=== PATIENT | female | born 1930 | race African-American/Black ===

== ENCOUNTER 2016-07-04 08:41 | Day surgery (SDC) | payer OTHER ==
[2016-07-03 12:31] VITALS: BMI 24.0
[~2016-07-04 08:41] MED LIST: IOHEXOL 300 MG/ML INFUS..BTL IV ONE
[2016-07-04] MEDS ORDERED: LIDOCAINE HCL 1%, 10 MG/ML (50 mL VIAL) IJ ONE (10:29)
[2016-07-04] MEDS ORDERED: MIDAZOLAM HCL 2 MG/2 ML SINGLE DOSE VIAL ONE ×2 (10:43)
[2016-07-04] MEDS ORDERED: ceFAZolin SODIUM 1 GM VIAL ONE (10:52)
[2016-07-04] MEDS ORDERED: ceFAZolin SODIUM 1 GM VIAL IVPB ONE (10:55)
[2016-07-04] MEDS ORDERED: HEPARIN NA (PORCINE) 5,000 UNITS/ML 1ML VIAL ONE (11:07)
--- NOTE | 2016-07-04 11:47 | OP ---
Operative Note - Note: Operative Date: 07/04/16 Pre-Operative Diagnosis: right avg stenosis Operation: venogram, venoplasty of central veins right avg Post-Operative Diagnosis: Same as Pre-op Surgeon: Rambo Ma Anesthesiologist/AIR DISPATCHER: Delmi Mayers Anesthesia: Fractional Estimated Blood Loss (mls): 5
--- NOTE | 2016-07-04 11:49 | HP ---
Admitting History and Physical - Admission Chief Complaint: Right arm swelling - Past Medical History Cardiovascular: Yes: HTN Gastrointestinal: Yes: Constipation Renal/: Yes: Renal Failure, Hemodialysis Heme/Onc: Yes: Anemia ENT: Yes: Allergic Rhinitis - Past Surgical History Past Surgical History: Yes: AV Fistula/Graft - Smoking History Smoking history: Former smoker Have you smoked in the past 12 months: No Aproximately how many cigarettes per day: 0 If you are a former smoker, when did you quit?: 40 YRS - Alcohol/Substance Use Hx Alcohol Use: No - Social History ADL: Independent History of Recent Travel: No Home Medications - Allergies Allergies/Adverse Reactions: Allergies Allergy/AdvReac Type Severity Reaction Status Date / Time No Known Drug Allergies Allergy Verified 07/03/16 12:31 - Home Medications Home Medications: Ambulatory Orders Furosemide [Lasix -] 80 mg PO DAILY 03/03/15 Nifedipine [Nifedipine ER] 30 mg PO DAILY 06/02/15 Omeprazole [Prilosec] 20 mg PO DAILY 06/02/15 Apixaban [Eliquis] 2.5 mg PO BID 30 Days 06/22/15 Sodium Bicarbonate 650 mg PO TID 08/04/15 Alprazolam [Xanax] 0.5 mg PO DAILY PRN 04/25/16 Physical Examination Vital Signs: Vital Signs Temperature 97.4 F L 07/04/16 09:07 Pulse Rate 80 07/04/16 09:07 Respiratory Rate 20 07/04/16 09:07 Blood Pressure 133/59 07/04/16 09:07 O2 Sat by Pulse Oximetry (%) 100 07/04/16 09:07 Constitutional: Yes: Well Nourished Eyes: Yes: WNL HENT: Yes: WNL Neck: Yes: WNL Cardiovascular: Yes: WNL Respiratory: Yes: WNL Gastrointestinal: Yes: WNL Labs: CBC, BMP 07/04/16 08:50 Assessment/Plan Right arm swelling 1. Will do venogram for central vein stenosis.
[2016-07-04] MEDS ORDERED: ONDANSETRON 4 MG/2 ML VIAL IVPUSH PRN (11:51)
[2016-07-04 12:33] VITALS: TEMP 98.3
[2016-07-04 13:59] VITALS: BP 127/55; PULSE 73
--- NOTE | 2016-07-29 21:12 | OP ---
DATE OF OPERATION: 07/04/2016 PREOPERATIVE DIAGNOSIS: Right arteriovenous graft stenosis. POSTOPERATIVE DIAGNOSIS: Right arteriovenous graft stenosis. PROCEDURE: Venogram, venoplasty of central veins, right arteriovenous graft. SURGEON: Rambo Chaney D.O. ANESTHESIOLOGIST: Delmi Mayers D.O. ANESTHESIA: Fractional. BLOOD LOSS: 5 mL. INDICATION: The patient is an 85-year-old female that has right upper extremity swelling along with swelling along her breasts. It was strongly suspected that she had central vein stenosis, and it was thought that she would need a venogram. Patient came into ambulatory surgery. Patient was consented for the procedure, understanding all risks, benefits, and alternatives and taken to the operating room. DESCRIPTION OF PROCEDURE: Once in the operating room, she was laid on the operating table in a supine manner, and the area of the right arm are prepped and draped in a sterile surgical manner. We then injected 2 mL of lidocaine 1% approximately at the proximal AV graft. We then placed our Micropuncture needle into the graft. A Micropuncture wire was inserted, and a short 6-Bulgarian sheath was inserted. We then shot a venogram of the right AV graft showing that the graft was patent but in the central veins at the junction between the subclavian vein and the SVC there was a 98% stenosis. At this point placed a 0.035 floppy guidewire followed by a Aurora catheter in order to selectively navigate across our stenosis. We then went ahead and upsized our sheath to a 7 Bulgarian sheath. 3000 units of IV heparin were administered to the patient. We then went ahead and used an 11 x 4 balloon and we performed venoplasty of the area. Completion of venogram showed that there was now greater flow in the area, but the vein was recoiling. We did not to place a stent at this time due to the fact that the data showed that placing a stent in the area probably will not stay open very long, and once that stent closes, the whole graft could go down and thrombose. So at this point we performed a venoplasty. There was increased flow, and we will now see if the swelling in the right upper extremity gets better. At this point, a fprfuh-[id number] suture was placed around the 7 Bulgarian sheath and the sheath was pulled, and the suture was tied down. Area was then dried. Dermabond was placed. Patient tolerated the procedure without complications. Patient was transferred to PACU in stable condition. Total blood loss 5 mL. RAMBO CHANEY DO [id number]
== END 2016-07-04 14:30 | disposition home or self-care (01) ==
LOC: JASU-SURG 08:41
PROVIDERS: ATTEND Surgery Vascular Surgery
PROC: 05753ZZ Dilation of Right Subclavian Vein, Percutaneous Approach (ICD-10-PCS; principal; 2016-07-04 10:30)
DX: T82.858A Stenosis of other vascular prosthetic devices, implants and grafts, initial encounter (principal); M79.89 Other specified soft tissue disorders; I12.0 Hypertensive chronic kidney disease with stage 5 chronic kidney disease or end stage renal disease; N18.5 Chronic kidney disease, stage 5; Z99.2 Dependence on renal dialysis
CPT/HCPCS: 36415; 76000-TC; 84132; 94760; J1644

== ENCOUNTER 2016-08-17 06:56 | Emergency (ER) | payer OTHER, BC ==
[2016-08-17 07:18] VITALS: TEMP 97.5; BMI 21.7
--- NOTE | 2016-08-17 07:49 | PDOC ---
[id number] Timing/Duration: reports: yesterday Associated Symptoms: reports: chest pain/soreness, cough, muscle aches, nasal congestion. denies: earache, facial pain, fever/chills, headache, lightheadedness, nasal drainage, shortness of breath, sore throat <Zari Garcia - Last Filed: 08/17/16 09:35> <Tiffany Cunningham - Last Filed: 08/17/16 11:42> - General Chief Complaint: Shortness of Breath Stated Complaint: COUGHING Time Seen by Provider: 08/17/16 07:19 Past History - Past Medical History Anemia: No Asthma: No Cancer: No Cardiac Disorders: No CVA: No COPD: No CHF: No Dementia: No Diabetes: No Dialysis: Yes (,,sat,old lt arm fistula,rt arm graft) GI Disorders: Yes (REFLUX) Disorders: No HTN: Yes Hypercholesterolemia: No Liver Disease: No Seizures: No Thyroid Disease: No - Surgical History Abdominal Surgery: No Appendectomy: No Cardiac Surgery: No Cholecystectomy: No Lung Surgery: No Neurologic Surgery: No Orthopedic Surgery: No - Immunization History Immunization Up to Date: Yes - Psycho/Social/Smoking Cessation Hx Anxiety: No Suicidal Ideation: No Smoking Status: No Smoking History: Former smoker Have you smoked in the past 12 months: No Number of Cigarettes Smoked Daily: 0 If you are a former smoker, when did you quit?: 40 YRS Information on smoking cessation initiated: No Hx Alcohol Use: No Drug/Substance Use Hx: No Substance Use Type: None Hx Substance Use Treatment: No <Zari Garcia - Last Filed: 08/17/16 09:35> <Tiffany Cunningham - Last Filed: 08/17/16 11:42> - Past Medical History Allergies/Adverse Reactions: Allergies Allergy/AdvReac Type Severity Reaction Status Date / Time No Known Drug Allergies Allergy Verified 08/17/16 07:08 Home Medications: Ambulatory Orders Furosemide [Lasix -] 80 mg PO DAILY 03/03/15 Nifedipine [Nifedipine ER] 30 mg PO DAILY 06/02/15 Omeprazole [Prilosec] 20 mg PO DAILY 06/02/15 Apixaban [Eliquis] 2.5 mg PO BID 30 Days 06/22/15 Sodium Bicarbonate 650 mg PO TID 08/04/15 Alprazolam [Xanax] 0.5 mg PO DAILY PRN 04/25/16 Review of Systems - Review of Systems Constitutional: No: Chills, Fever HEENTM: Yes: Nose Congestion. No: Ear Pain, Throat Pain Respiratory: Yes: Cough. No: Shortness of Breath Cardiac (ROS): Yes: Chest Pain ABD/GI: No: Diarrhea, Nausea, Vomiting <Zari Garcia - Last Filed: 08/17/16 09:35> *Physical Exam - Vital Signs Last Vital Signs Temp Pulse Resp BP Pulse Ox 97.5 F L 88 18 160/60 99 08/17/16 07:08 08/17/16 07:08 08/17/16 07:08 08/17/16 07:08 08/17/16 07:08 - Physical Exam General Appearance: Yes: Appropriately Dressed. No: Apparent Distress HEENT: positive: Normal ENT Inspection, Normal Voice. negative: Scleral Icterus (R), Scleral Icterus (L), Muffled/Hoarse voice Neck: positive: Supple. negative: Lymphadenopathy (R), Lymphadenopathy (L) Respiratory/Chest: positive: Lungs Clear, Normal Breath Sounds. negative: Respiratory Distress Cardiovascular: positive: Regular Rate, S1, S2 Gastrointestinal/Abdominal: positive: Soft. negative: Tender Integumentary: positive: Dry, Warm Neurologic: positive: Fully Oriented, Alert, Normal Mood/Affect <Zari Garcia - Last Filed: 08/17/16 09:35> - Vital Signs Last Vital Signs Temp Pulse Resp BP Pulse Ox 97.5 F L 77 17 141/58 100 08/17/16 07:08 08/17/16 09:59 08/17/16 09:59 08/17/16 09:59 08/17/16 09:59 <Tiffany Cunningham - Last Filed: 08/17/16 11:42> ED Treatment Course - LABORATORY CBC & Chemistry Diagram: 08/17/16 08:18 08/17/16 08:18 - RADIOLOGY Radiology Studies Ordered: Category Date Time Status CHEST X-RAY PORTABLE* [RAD] Stat Radiology 08/17/16 07:45 Ordered <Zari Garcia - Last Filed: 08/17/16 09:35> - LABORATORY CBC & Chemistry Diagram: 08/17/16 08:18 08/17/16 08:18 - ADDITIONAL ORDERS Additional order review: Laboratory Results 08/17/16 08:18 Sodium 137 Potassium 3.9 Chloride 101 Carbon Dioxide 27 Anion Gap 9 BUN 22 H D Creatinine 3.0 H D Creat Clearance w eGFR 14.80 Random Glucose 84 Calcium 8.3 L Total Bilirubin 0.3 AST 8 L ALT 9 L Alkaline Phosphatase 177 H Creatine Kinase 41 Troponin I < 0.02 Total Protein 6.9 Albumin 3.4 08/17/16 07:55 Influenza Types A,B Antigen (ROSY) - Final Nasopharyngeal Swab - Final 08/17/16 08:18 RBC 3.90 MCV 82.1 MCHC 33.0 RDW 15.3 MPV 7.3 L Neutrophils % 63.6 Lymphocytes % 25.1 Monocytes % 9.0 Eosinophils % 0.6 D Basophils % 1.7 - Medications Given in the ED: ED Medications Discontinued Medications Generic Name Dose Route Start Last Admin Trade Name Freq PRN Reason Stop Dose Admin Acetaminophen 650 mg 08/17/16 09:24 08/17/16 09:35 Tylenol - PO 08/17/16 09:25 650 mg ONCE ONE Administration <Tiffany Cunningham - Last Filed: 08/17/16 11:42> Medical Decision Making - Medical Decision Making 08/17/16 07:45 85-year-old female history of hypertension, 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 Denies shortness of breath, diaphoresis, dizziness, diarrhea, n/v/f/c. No sick contacts. See exam Viral syndrome Well thomas and stable w/ unremarkable exam Will r/o influenza and PNA -EKG and basic labs given CP -anticipate discharge home 08/17/16 07:49 08/17/16 09:25 EKG/CXR/labs/flu neg. Pt stable for discharge at this time to f/u with PMD as needed 08/17/16 09:35 <Zari Garcia - Last Filed: 08/17/16 09:35> *DC/Admit/Observation/Transfer <Zari Garcia - Last Filed: 08/17/16 09:35> - Attestations Physician Attestion: I reviewed the case with the mid-level practitioner and agree with the mid- level practitioner's assessment, diagnosis and disposition. <Tiffany Cunningham - Last Filed: 08/17/16 11:42> Diagnosis at time of Disposition: Viral syndrome - Discharge Dispostion Disposition: HOME Condition at time of disposition: Improved - Referrals Referrals: Rock Streeter [Primary Care Provider] - - Patient Instructions Printed Discharge Instructions: DI for Viral Syndrome Additional Instructions: Rest, maintain adequate hydration and take tylenol as needed for body aches
[2016-08-17 08:33] LABS: BASOPHIL 1.7 % (0-2.0); EOSINOPHIL 0.6 % (0-4.5); MCH 27.1 pg (25.7-33.7); MEAN CELL VOLUME 82.1 fl (80-96); MEAN PLT VOLUME 7.3 fl (7.5-11.1); NEUTROPHILS 63.6 % (42.8-82.8); PLATELET COUNT 156 K/MM3 (134-434); RDW 15.3 % (11.6-15.6); WHITE BLOOD COUNT 5.1 K/mm3 (4.0-10.0)
[2016-08-17 08:57] LABS: ALBUMIN 3.4 g/dl (3.4-5.0); ANION GAP 9 (8-16); BILIRUBIN,TOTAL 0.3 mg/dL (0.2-1.0); CALCIUM 8.3 mg/dL (8.5-10.1); CO2 27 mmol/L (21-32); GLUCOSE,RANDOM 84 mg/dL (74-106); SGOT/AST 8 U/L (15-37); SGPT/ALT 9 U/L (12-78); TOT PROT 6.9 g/dl (6.4-8.2)
[2016-08-17 08:59] LABS: ALK PHOS 177 U/L (45-117); TROPONIN I < 0.02 ng/ml (0.00-0.05)
[2016-08-17] MEDS ORDERED: ACETAMINOPHEN 325 MG TABLET (FP) PO ONE (09:24)
[2016-08-17] MEDS ORDERED: ACETAMINOPHEN 325 MG TABLET (FP) ONE (09:46)
--- NOTE | 2016-08-17 09:55 | PDOC ---
*Physical Exam - Vital Signs Last Vital Signs Temp Pulse Resp BP Pulse Ox 97.5 F L 88 18 160/60 99 08/17/16 07:08 08/17/16 07:08 08/17/16 07:08 08/17/16 07:08 08/17/16 07:15 ED Treatment Course - LABORATORY CBC & Chemistry Diagram: 08/17/16 08:18 08/17/16 08:18 - ADDITIONAL ORDERS Additional order review: Laboratory Results 08/17/16 08:18 Sodium 137 Potassium 3.9 Chloride 101 Carbon Dioxide 27 Anion Gap 9 BUN 22 H D Creatinine 3.0 H D Creat Clearance w eGFR 14.80 Random Glucose 84 Calcium 8.3 L Total Bilirubin 0.3 AST 8 L ALT 9 L Alkaline Phosphatase 177 H Creatine Kinase 41 Troponin I < 0.02 Total Protein 6.9 Albumin 3.4 08/17/16 07:55 Influenza Types A,B Antigen (ROSY) - Final Nasopharyngeal Swab - Final 08/17/16 08:18 RBC 3.90 MCV 82.1 MCHC 33.0 RDW 15.3 MPV 7.3 L Neutrophils % 63.6 Lymphocytes % 25.1 Monocytes % 9.0 Eosinophils % 0.6 D Basophils % 1.7 - RADIOLOGY Radiology Studies Ordered: Category Date Time Status CHEST X-RAY PORTABLE* [RAD] Stat Radiology 08/17/16 07:45 Completed Medical Decision Making - Medical Decision Making 08/17/16 09:55 Upon discharge pt now reports dizziness that she said started last night. Denies vertigo, VALIENTE, visual changes, focal weakness and neurologically intact in ED. EKG/labs unremarkable. Pt unsteady on feet as per nurse, otherwise neuro intact on exam. Will observe in ED and reassess 08/17/16 09:57 08/17/16 10:46 On reassessment, patient reports feeling much better and was able to ambulate throughout ED with her walker without further dizziness. Stable at this time for discharge to follow-up with PMD *DC/Admit/Observation/Transfer Diagnosis at time of Disposition: Viral syndrome - Discharge Dispostion Disposition: HOME Condition at time of disposition: Improved - Referrals Referrals: Rock Streeter [Primary Care Provider] - - Patient Instructions Printed Discharge Instructions: DI for Viral Syndrome Additional Instructions: Rest, maintain adequate hydration and take tylenol as needed for body aches - Post Discharge Activity
[2016-08-17 10:01] VITALS: BP 141/58; PULSE 77
--- NOTE | 2016-08-17 15:17 | EKG ---
Test Reason : Blood Pressure : / mmHG Vent. Rate : 072 BPM Atrial Rate : 072 BPM P-R Int : 190 ms QRS Dur : 094 ms QT Int : 434 ms P-R-T Axes : 052 -05 053 degrees QTc Int : 475 ms NORMAL SINUS RHYTHM POOR R WAVE PROGRESSION ABNORMAL ECG WHEN COMPARED WITH ECG OF 25-APR-2016 12:30, NO SIGNIFICANT CHANGE WAS FOUND Confirmed by MAXINE VARELA MD ([id number]) on 08/17/2016 3:16:55 PM Referred By: Confirmed By:MAXINE VARELA MD
== END 2016-08-17 10:59 | disposition home or self-care (01) ==
LOC: JER 06:56
DX: B34.9 Viral infection, unspecified (principal); I12.0 Hypertensive chronic kidney disease with stage 5 chronic kidney disease or end stage renal disease; N18.6 End stage renal disease; N17.8 Other acute kidney failure; Z99.2 Dependence on renal dialysis; Z87.891 Personal history of nicotine dependence
CPT/HCPCS: 36415; 71010-TC; 80053; 82550; 84484; 85025; 87804; 93005; 93010; 99282-25

== ENCOUNTER 2016-09-05 08:22 | Day surgery (SDC) | payer OTHER ==
[2016-09-04 11:45] VITALS: BMI 22.6
[~2016-09-05 08:22] MED LIST changes: +HEPARIN NA (PORCINE) 5,000 UNITS/ML 1ML VIAL IV ONE; -IOHEXOL 300 MG/ML INFUS..BTL IV ONE; +LIDOCAINE HCL 1%, 10 MG/ML (20ML VIAL) IJ ONE
[2016-09-05] MEDS ORDERED: HEPARIN NA (PORCINE) 5,000 UNITS/ML 1ML VIAL ONE (09:51)
[2016-09-05] MEDS ORDERED: LIDOCAINE HCL 1%, 10 MG/ML (20ML VIAL) ONE (09:51)
[2016-09-05] MEDS ORDERED: KETOROLAC TROMETHAMINE 30 MG/1 ML VIAL ONE (11:08)
[2016-09-05] MEDS ORDERED: MIDAZOLAM HCL 2 MG/2 ML SINGLE DOSE VIAL ONE ×2 (11:08→11:13)
[2016-09-05] MEDS ORDERED: ceFAZolin SODIUM 1 GM VIAL ONE (11:08)
[2016-09-05] MEDS ORDERED: LIDOCAINE HCL 1%, 10 MG/ML (20ML VIAL) IJ ONE (11:21)
[2016-09-05] MEDS ORDERED: HEPARIN NA (PORCINE) 5,000 UNITS/ML 1ML VIAL IV ONE (11:25)
[2016-09-05] MEDS ORDERED: ONDANSETRON 4 MG/2 ML VIAL IVPUSH PRN (12:05)
[2016-09-05] MEDS ORDERED: PROMETHAZINE HCL 25 MG/1 ML VIAL IVPUSH PRN (12:05)
[2016-09-05] MEDS ORDERED: oxyCODONE HCL 5 MG TABLET PO PRN (12:05)
--- NOTE | 2016-09-05 12:11 | OP ---
Operative Note - Note: Operative Date: 09/05/16 Pre-Operative Diagnosis: Central vein stenosis right avg Operation: venogram right avg, venoplasty of central veins Findings: 100% occlusion of right sublclavian,SVC junction 12x4 conquest balloon used. Post-Operative Diagnosis: Same as Pre-op Surgeon: Rambo aM Anesthesia: Fractional Estimated Blood Loss (mls): 10 Operative Report Dictated: Yes
--- NOTE | 2016-09-05 12:12 | HP ---
Admitting History and Physical - Admission Chief Complaint: right upper ext swelling - Past Medical History Cardiovascular: Yes: HTN Gastrointestinal: Yes: Constipation Renal/: Yes: Renal Failure, Hemodialysis ...: No Heme/Onc: Yes: Anemia ENT: Yes: Allergic Rhinitis - Past Surgical History Past Surgical History: Yes: AV Fistula/Graft - Advance Directives Advance Directives: Yes: Living Will, Health Care Proxy - Smoking History Smoking history: Former smoker Have you smoked in the past 12 months: No Aproximately how many cigarettes per day: 0 If you are a former smoker, when did you quit?: 40 YRS - Alcohol/Substance Use Hx Alcohol Use: No - Social History ADL: Independent History of Recent Travel: No Home Medications - Allergies Allergies/Adverse Reactions: Allergies Allergy/AdvReac Type Severity Reaction Status Date / Time No Known Drug Allergies Allergy Verified 09/04/16 11:46 SEASONAL ALLERGIES Allergy Intermediate Uncoded 09/04/16 11:47 - Home Medications Home Medications: Ambulatory Orders Furosemide [Lasix -] 80 mg PO DAILY 03/03/15 Nifedipine [Nifedipine ER] 30 mg PO DAILY 06/02/15 Omeprazole [Prilosec] 20 mg PO DAILY 06/02/15 Apixaban [Eliquis] 2.5 mg PO BID 30 Days 06/22/15 Sodium Bicarbonate 650 mg PO TID 08/04/15 Alprazolam [Xanax] 0.5 mg PO DAILY PRN 04/25/16 Cinacalcet HCl [Sensipar] 30 mg PO DAILY 09/05/16 Physical Examination Vital Signs: Vital Signs Temperature 98.1 F 09/05/16 09:01 Pulse Rate 84 09/05/16 09:01 Respiratory Rate 20 09/05/16 09:01 Blood Pressure 144/62 09/05/16 09:01 O2 Sat by Pulse Oximetry (%) 99 09/05/16 09:01 Constitutional: Yes: Well Nourished Eyes: Yes: WNL HENT: Yes: WNL Neck: Yes: WNL Cardiovascular: Yes: WNL Respiratory: Yes: WNL Gastrointestinal: Yes: WNL Extremities: Yes: WNL Edema: RUE: 3+ Labs: CBC, BMP 09/05/16 08:30 Assessment/Plan Right central vein stenosis 1. For venogram today
[2016-09-05 13:55] VITALS: TEMP 98.2
[2016-09-05 14:13] VITALS: PULSE 70
[2016-09-05 15:31] VITALS: BP 143/66
--- NOTE | 2016-09-06 09:00 | OP ---
DATE OF OPERATION: 09/05/2016 PREOPERATIVE DIAGNOSES: Right upper extremity swelling. Central vein stenosis. POSTOPERATIVE DIAGNOSES: Right upper extremity swelling. Central vein stenosis. PROCEDURES: Venogram. Right arteriovenous graft. Venoplasty of central vein. SURGEON: Rambo Chaney DO ANESTHESIA: Fractional. TOTAL BLOOD LOSS: 10 mL. The patient is a 85-year-old female who has right upper extremity swelling along with breast swelling. Two and one-half months ago, she had a venoplasty of the central veins performed due to severe central vein stenosis. She now comes back with swelling in the right upper extremity and the breast again. It was found that she would need a repeat venogram. The patient was consented for the procedure, understanding all risks, benefits and alternatives, and taken to the operating room. Once in the operating suite, laid on the operating room table in a supine manner. The area of the right upper extremity was prepped and draped in a sterile surgical manner. We then went ahead and injected 10 mL over the proximal right AV graft. We then took our Micropuncture needle and punctured the right AV graft. The Micropuncture wire was inserted. The Micropuncture sheath was inserted. A 0.035 floppy guide wire was inserted and then the traditional 8-[place]aj[place] sheath was inserted. Three-thousand units of IV heparin were administered to the patient. We then placed our 0.035 floppy guide wire into the central veins. We shot a venogram showing the 100% occlusion at the junction of the subclavian vein and the SVC. At this point, we went ahead and placed a 65 catheter in and selectively cannulated across our occlusion and placed a wire outside the right atrium. We then went ahead and used a 10 x 8 [place] balloon and performed venoplasty of the area. Then, we used a 12 x 4 Conquest balloon and performed venoplasty. Completion venogram now showed that the flow was open and there was probably still recoil. However, the junction was now open and there was good flow into the SVC. On the way out, we used our 12 x 4 balloon and performed venoplasty of the venous anastomosis of the AV graft. Completion venogram showed that there was good flow and the venous anastomosis was patent now. We then went ahead and used a 4-0 Biosyn stitch and placed a [id number] stitch around the sheath and the sheath was pulled. The areas were then dried and Dermabond was placed. The patient tolerated the procedure well. There were no complications. The patient was transferred to the PACU in stable condition. RAMBO CHANEY DO [id number]
== END 2016-09-05 15:00 | disposition home or self-care (01) ==
LOC: JASU-SURG 08:22
PROVIDERS: ATTEND Surgery Vascular Surgery
PROC: 05753ZZ Dilation of Right Subclavian Vein, Percutaneous Approach (ICD-10-PCS; principal; 2016-09-05 10:30)
DX: T82.858A Stenosis of other vascular prosthetic devices, implants and grafts, initial encounter (principal); I12.0 Hypertensive chronic kidney disease with stage 5 chronic kidney disease or end stage renal disease; N18.6 End stage renal disease; Z99.2 Dependence on renal dialysis
CPT/HCPCS: 36415; 76000-TC; 84132; 94760; J1644

== ENCOUNTER 2016-11-28 09:16 | Day surgery (SDC) | payer OTHER ==
[2016-11-27 11:15] VITALS: BMI 21.9
[2016-11-28] MEDS ORDERED: ISOSULFAN BLUE 10 MG/ML VIAL SQ ONE (09:50)
[2016-11-28 10:35] LABS: CALCIUM 8.5 mg/dL (8.5-10.1); COCKROFT - GAULT 9.605; CREATININE 3.1 mg/dL (0.55-1.02)
[2016-11-28] MEDS ORDERED: LIDOCAINE HCL 1%, 10 MG/ML (20ML VIAL) ONE (11:37)
[2016-11-28] MEDS ORDERED: HEPARIN NA (PORCINE) 5,000 UNITS/ML 1ML VIAL ONE (11:37)
[2016-11-28] MEDS ORDERED: MIDAZOLAM HCL 2 MG/2 ML SINGLE DOSE VIAL ONE (11:44)
[2016-11-28] MEDS ORDERED: SODIUM CHLORIDE 0.9% P/F 10 ML VIAL IJ ONE (11:52)
[2016-11-28] MEDS ORDERED: ceFAZolin SODIUM 1 GM VIAL ONE (11:52)
[2016-11-28] MEDS ORDERED: ceFAZolin SODIUM 1 GM VIAL IVPB ONE (11:55)
[2016-11-28] MEDS ORDERED: LIDOCAINE HCL 1%, 10 MG/ML (20ML VIAL) IJ ONE (12:05)
[2016-11-28] MEDS ORDERED: ONDANSETRON 4 MG/2 ML VIAL IVPUSH PRN (13:01)
[2016-11-28] MEDS ORDERED: PROMETHAZINE HCL 25 MG/1 ML VIAL IVPUSH PRN (13:01)
[2016-11-28] MEDS ORDERED: SODIUM CHLORIDE 1,000 ML IV SCH (13:15)
--- NOTE | 2016-11-28 13:18 | OP ---
Operative Note - Note: Operative Date: 11/28/16 Pre-Operative Diagnosis: Central vein stenosis right avg Operation: Venogram, venoplasty, stent placement central veins avg Findings: Central vein stenosis 95% Post-Operative Diagnosis: Same as Pre-op Surgeon: Rambo Ma Anesthesia: Fractional Estimated Blood Loss (mls): 50 Operative Report Dictated: Yes
--- NOTE | 2016-11-28 13:20 | HP ---
Admitting History and Physical - Admission Chief Complaint: right arm and breast swelling - Past Medical History Cardiovascular: Yes: HTN Gastrointestinal: Yes: Constipation Renal/: Yes: Renal Failure, Hemodialysis Heme/Onc: Yes: Anemia ENT: Yes: Allergic Rhinitis - Past Surgical History Past Surgical History: Yes: AV Fistula/Graft - Smoking History Smoking history: Former smoker Have you smoked in the past 12 months: No Aproximately how many cigarettes per day: 0 If you are a former smoker, when did you quit?: 40 YRS - Alcohol/Substance Use Hx Alcohol Use: No - Social History ADL: Independent History of Recent Travel: No Home Medications - Allergies Allergies/Adverse Reactions: Allergies Allergy/AdvReac Type Severity Reaction Status Date / Time No Known Drug Allergies Allergy Verified 11/28/16 10:19 SEASONAL ALLERGIES Allergy Intermediate Uncoded 11/28/16 10:19 - Home Medications Home Medications: Ambulatory Orders Furosemide [Lasix -] 80 mg PO DAILY 03/03/15 Omeprazole [Prilosec] 20 mg PO DAILY 06/02/15 Apixaban [Eliquis] 2.5 mg PO BID 30 Days 06/22/15 Sodium Bicarbonate 650 mg PO TID 08/04/15 Cinacalcet HCl [Sensipar] 30 mg PO DAILY 09/05/16 Physical Examination Vital Signs: Vital Signs Temperature 98.1 F 11/28/16 10:24 Pulse Rate 76 11/28/16 10:24 Respiratory Rate 18 11/28/16 10:24 Blood Pressure 141/65 11/28/16 10:24 O2 Sat by Pulse Oximetry (%) Constitutional: Yes: Well Nourished Eyes: Yes: WNL HENT: Yes: WNL Neck: Yes: WNL Cardiovascular: Yes: WNL Respiratory: Yes: WNL Gastrointestinal: Yes: WNL Extremities: Yes: WNL Edema: Yes Edema: RUE: 2+ Labs: CBC, BMP 11/28/16 09:55 Assessment/Plan Right arm and breast swelling 1. For venogram today
[2016-11-28] MEDS ORDERED: ACETAMINOPHEN 325 MG TABLET (FP) ONE (14:49)
[2016-11-28] MEDS ORDERED: ACETAMINOPHEN 325 MG TABLET (FP) PO ONE (15:00)
[2016-11-28 15:47] VITALS: TEMP 98
[2016-11-28 15:49] VITALS: BP 145/64; PULSE 77
--- NOTE | 2016-11-28 23:31 | OP ---
DATE OF OPERATION: 11/28/2016 PREOPERATIVE DIAGNOSIS: Right arm and right breast swelling. POSTOPERATIVE DIAGNOSIS: Right arm and right breast swelling. OPERATION: Venogram, venoplasty with central vein stent placement. SURGEON: Rambo Chaney DO ANESTHESIA: Fractional. ESTIMATED BLOOD LOSS: 50 mL. INDICATIONS: The patient is an 86-year-old female with right arm and right breast swelling. It was decided that she needs a venogram. She has a known central vein stenosis but she needs a venogram and this time we had Plastic Surgery evaluate, if we gave some dye if it goes into her breast. The main symptoms of her breast is that the right breast is 2-3 times bigger than the left breast and we wanted to see if there was any connection between the central veins and the breast. The patient was consented for this procedure, understanding all risks, benefits, alternatives and then taken to the operating room. PROCEDURE IN DETAIL: Once in the operating room, she was placed on the operating table in a supine manner. The area of the right arm was prepped and draped in a sterile surgical manner. We then injected 10 mL of lidocaine 1% over the right AV graft. We then took our micropuncture needle and punctured the AV graft. Micropuncture wire was inserted and short 7-[place] sheath was inserted. We then shot a venogram through the graft and we found that there was a 95% stenosis in the central veins at the junction of the subclavian vein and the SVC. We then went ahead and took methylene blue dye and injected 5 mL of it and we waited to see if that projected to her skin over the right breast. It did not. At this point, that we decided that most of her symptoms are probably due to her central vein stenosis. We then placed a 0.035 guidewire down into the subclavian vein, followed by a Chucho catheter and we were able to selectively cannulate through that 95% stenosis and place a wire down into the IVC. We then went ahead and used a 10 x 4 [place] balloon and performed venoplasty of the area. Once venoplasty was performed, we tired to take the [place] balloon out, but the [place] balloon was stuck on our sheath and would not come out. The balloon and the shaft of the balloon . The shaft came out and the balloon was inside the sheath. We then went ahead and removed our sheath and placed another 7-[place] sheath in its place. The broken balloon was inside the original sheath and that was taken off the field. We then went ahead and placed a 0.035 floppy guidewire back up into the subclavian vein and selectively cannulated through the area we just ballooned and placed a wire into the IVC. We then used a 10 x 3 Valeo balloon-mounted stent and went ahead and placed our balloon mounted stent at the junction of the SVC and the subclavian vein. We then shot a completion venogram showing that now the outflow was completely open with the heart lighting up. At this point, we took a 4-0 Biosyn stitch and placed a [id number]-zq-yngdx stitch around our sheath and the 7-[place] sheath was removed. Pressure was held for five minutes. After there was no bleeding, the area was wet and dried and Dermabond was placed. The patient tolerated the procedure well with no complications. The patient was transferred to the PACU in stable condition. RAMBO CHANEY DO [id number]
== END 2016-11-28 13:35 | disposition home or self-care (01) ==
LOC: JASU-SURG 09:16
PROVIDERS: ATTEND Surgery Vascular Surgery
PROC: B518YZA Fluoroscopy of Superior Vena Cava using Other Contrast, Guidance (ICD-10-PCS; 2016-11-28)
PROC: 05753DZ Dilation of Right Subclavian Vein with Intraluminal Device, Percutaneous Approach (ICD-10-PCS; 2016-11-28)
PROC: B516YZA Fluoroscopy of Right Subclavian Vein using Other Contrast, Guidance (ICD-10-PCS; principal; 2016-11-28 11:00)
DX: T82.49XA Other complication of vascular dialysis catheter, initial encounter (principal); I12.0 Hypertensive chronic kidney disease with stage 5 chronic kidney disease or end stage renal disease; N18.6 End stage renal disease; Z99.2 Dependence on renal dialysis
CPT/HCPCS: 36415; 76000-TC; 80048; 94760; J1644

== ENCOUNTER 2016-12-10 12:57 | Inpatient (IN) | payer OTHER ==
--- NOTE | 2016-12-10 13:41 | PDOC ---
History of Present Illness - General History Source: Patient, Primary Care Provider Exam Limitations: No Limitations - History of Present Illness Initial Comments: 12/10/16 13:51 The patient is an 86-year-old woman, accompanied by her grand-daughter, with a past medical history of hypertension, gastroesophageal reflux disease and end- stage renal disease (on hemo-dialysis q. T/R/S) who was advised to present to the emergency department by her PMD, Dr. Rock Streeter for evaluation of an anal fissure. As per grand-daughter, patient's symptoms started approximately 2 weeks ago. The patient started to experience rectal pain and attempted to use suppositories, which did not help. She has also developed suprapubic abdominal pain and currently feels nauseous. She was seen at her PMD's office, who stated that the patient had an anal fissure. No blood per rectum. No other complaints. She denies fever, chills, diaphoresis, generalized weakness. She denies chest pain, shortness of breath, cough She denies vomiting, diarrhea, dysuria, hematuria, urinary frequency and urgency , flank pain, vaginal discharge/vaginal bleeding Allergies: No Known Drug Allergies. Seasonal Allergies. Past Surgical History: None reported. Social History: No tobacco, EtOH and recreational drug use. Primary Care Physician: Dr. Rock Streeter <Nila Garner - Last Filed: 12/10/16 14:37> <Dai Batres - Last Filed: 12/10/16 15:52> - General Chief Complaint: Rectal Bleed Stated Complaint: (PCP SENT) RECTAL PAIN Time Seen by Provider: 12/10/16 13:36 Past History <Nila Garner - Last Filed: 12/10/16 14:37> - Past Medical History Anemia: No Asthma: No Cancer: No Cardiac Disorders: Yes CVA: No COPD: No CHF: No Dementia: No Diabetes: No Dialysis: Yes (Sat) GI Disorders: Yes (GERD) Disorders: No HTN: Yes Hypercholesterolemia: No Liver Disease: No Seizures: No Thyroid Disease: No - Surgical History Abdominal Surgery: No Appendectomy: No Cardiac Surgery: No Cholecystectomy: No Lung Surgery: No Neurologic Surgery: No Orthopedic Surgery: No - Immunization History Immunization Up to Date: Yes - Psycho/Social/Smoking Cessation Hx Anxiety: No Suicidal Ideation: No Smoking Status: No Smoking History: Former smoker Have you smoked in the past 12 months: No Number of Cigarettes Smoked Daily: 0 If you are a former smoker, when did you quit?: 40 YRS Information on smoking cessation initiated: No Hx Alcohol Use: No Drug/Substance Use Hx: No Substance Use Type: None Hx Substance Use Treatment: No <Dai Batres - Last Filed: 12/10/16 15:52> - Past Medical History Allergies/Adverse Reactions: Allergies Allergy/AdvReac Type Severity Reaction Status Date / Time No Known Drug Allergies Allergy Verified 12/10/16 13:03 SEASONAL ALLERGIES Allergy Intermediate Uncoded 12/10/16 13:03 Home Medications: Ambulatory Orders Furosemide [Lasix -] 80 mg PO DAILY 03/03/15 Omeprazole [Prilosec] 20 mg PO DAILY 06/02/15 Apixaban [Eliquis] 2.5 mg PO BID 30 Days 06/22/15 Sodium Bicarbonate 650 mg PO TID 08/04/15 Cinacalcet HCl [Sensipar] 30 mg PO DAILY 09/05/16 Review of Systems - Review of Systems Able to Perform ROS?: Yes Comments:: 12/10/16 13:51 GENERAL/CONSTITUTIONAL: No fever or chills. No weakness. HEAD, EYES, EARS, NOSE AND THROAT: No change in vision. No ear pain or discharge. No sore throat. CARDIOVASCULAR: No chest pain or shortness of breath. RESPIRATORY: No cough, wheezing, or hemoptysis. GASTROINTESTINAL: Yes: Rectal pain. Abdominal Pain. Nausea. No vomiting, diarrhea or constipation. GENITOURINARY: No dysuria, frequency, or change in urination. MUSCULOSKELETAL: No joint or muscle swelling or pain. No neck or back pain. SKIN: No rash NEUROLOGIC: No headache, vertigo, loss of consciousness, or change in strength/ sensation. ENDOCRINE: No increased thirst. No abnormal weight change. HEMATOLOGIC/LYMPHATIC: No anemia, easy bleeding, or history of blood clots. ALLERGIC/IMMUNOLOGIC: No hives or skin allergy. <Nila Garner - Last Filed: 12/10/16 14:37> *Physical Exam - Vital Signs Last Vital Signs Temp Pulse Resp BP Pulse Ox 97.9 F 93 H 18 160/67 98 12/10/16 12:59 12/10/16 12:59 12/10/16 12:59 12/10/16 12:59 12/10/16 12:59 - Physical Exam Comments: 12/10/16 13:51 GENERAL: Awake, alert, and fully oriented, in no acute distress HEAD: No signs of trauma EYES: PERRLA, EOMI, sclera anicteric, conjunctiva clear ENT: Auricles normal inspection, hearing grossly normal, nares patent, oropharynx clear without exudates. Moist mucosa NECK: Normal ROM, supple, no lymphadenopathy, JVD, or masses LUNGS: Breath sounds equal, clear to auscultation bilaterally. No wheezes, and no crackles HEART: Regular rate and rhythm, normal S1 and S2, no murmurs, rubs or gallops ABDOMEN: Soft, nontender, normoactive bowel sounds. No guarding, no rebound. No masses EXTREMITIES: Normal range of motion, no edema. No clubbing or cyanosis. No cords, erythema, or tenderness NEUROLOGICAL: Cranial nerves II through XII grossly intact. Normal speech, RECTAL: Small external hemmorhoid. No tenderness. No masses. <Nila Garner - Last Filed: 12/10/16 14:37> - Vital Signs Last Vital Signs Temp Pulse Resp BP Pulse Ox 97.9 F 93 H 18 160/67 98 12/10/16 12:59 12/10/16 12:59 12/10/16 12:59 12/10/16 12:59 12/10/16 12:59 <Dai Batres - Last Filed: 12/10/16 15:52> ED Treatment Course - LABORATORY CBC & Chemistry Diagram: 12/10/16 14:16 12/10/16 14:16 <Nila Garner - Last Filed: 12/10/16 14:37> - LABORATORY CBC & Chemistry Diagram: 12/10/16 14:16 12/10/16 14:16 <Dai Batres - Last Filed: 12/10/16 15:52> Medical Decision Making - Medical Decision Making 12/10/16 13:[address] Rock Streeter. 12/10/16 14:[address] Trejo. 12/10/16 14:[address] Trejo. Patient has an outpatient appointment on . If blood work is WNL, patient can follow up as outpatient. 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 Patient has failed multiple trials of outpatient management of her constipation. Abdomen is non tender on my exam, rectal exam shows small hemorrhoid. Patient and PMD strongly desire admission. Dr. Lambert has agreed to admit the patient. Will admit to medicine for management of her constipation and pain. <Dai Batres - Last Filed: 12/10/16 15:52> *DC/Admit/Observation/Transfer - Attestations Scribe Attestion: 12/10/16 13:51 Documentation prepared by Nila Garner, acting as medical assistant internal medicine for Dai Batres MD, /DO. <Nila Garner - Last Filed: 12/10/16 14:37> - Discharge Dispostion Admit: Yes Decision to Admit order Date/Time: 12/10/16 15:52 <Dai Batres - Last Filed: 12/10/16 15:52> Diagnosis at time of Disposition: Anal fissure - Discharge Dispostion Condition at time of disposition: Good
[2016-12-10 14:43] LABS: BASOPHIL 1.2 % (0-2.0); EOSINOPHIL 0.8 % (0-4.5); MCHC 32.3 g/dl (32.0-36.0); MEAN CELL VOLUME 83.7 fl (80-96); MEAN PLT VOLUME 8.2 fl (7.5-11.1); PLATELET COUNT 181 K/MM3 (134-434); RDW 17.9 % (11.6-15.6); WHITE BLOOD COUNT 3.8 K/mm3 (4.0-10.0)
[2016-12-10 14:54] LABS: INR 1.8 (0.82-1.09)
[2016-12-10 14:56] LABS: ACTIVATED PTT 66.8 SECONDS (26.9-34.4)
[2016-12-10 15:02] LABS: ALBUMIN 3.6 g/dl (3.4-5.0); ALK PHOS 140 U/L (45-117); ANION GAP 10 (8-16); BILIRUBIN,TOTAL 0.5 mg/dL (0.2-1.0); CALCIUM 8.4 mg/dL (8.5-10.1); CO2 29 mmol/L (21-32); CREATININE 4.6 mg/dL (0.55-1.02); GLUCOSE,RANDOM 106 mg/dL (74-106); SGOT/AST 12 U/L (15-37); SGPT/ALT 16 U/L (12-78); TOT PROT 6.6 g/dl (6.4-8.2)
[2016-12-10] MEDS ORDERED: MAG HYDROX/AL HYDROX/SIMETH 30 ML UNIT-DOSE CUP PO ONE (16:36)
[2016-12-10] MEDS ORDERED: MAG HYDROX/AL HYDROX/SIMETH 30 ML UNIT-DOSE CUP ONE (16:54)
[2016-12-10 17:50] VITALS: BMI 28.0
[2016-12-10] MEDS ORDERED: PT OWN MED DRAWER 7, Y5N ONE (21:29)
[2016-12-10] MEDS: SODIUM BICARBONATE 650 MG TABLET PO SCH (21:37)
[2016-12-10] MEDS: APIXABAN 2.5 MG TABLET PO SCH (22:34)
[2016-12-10] MEDS ORDERED: FUROSEMIDE 40 MG/4 ML INJECTABLE VIAL IVPUSH ONE (23:15)
[2016-12-11] MEDS ORDERED: EPOETIN ALFA 10,000 UNIT/1 ML VIAL SQ ONE (09:00)
[2016-12-11 10:39] LABS: BASOPHIL 1.5 % (0-2.0); EOSINOPHIL 0.9 % (0-4.5); MCH 26.8 pg (25.7-33.7); MCHC 32.4 g/dl (32.0-36.0); MEAN CELL VOLUME 82.8 fl (80-96); MEAN PLT VOLUME 8.2 fl (7.5-11.1); NEUTROPHILS 59.8 % (42.8-82.8); PLATELET COUNT 173 K/MM3 (134-434); RDW 17.8 % (11.6-15.6); WHITE BLOOD COUNT 3.6 K/mm3 (4.0-10.0)
[2016-12-11 11:32] LABS: ALBUMIN 3.3 g/dl (3.4-5.0); ALK PHOS 133 U/L (45-117); ANION GAP 11 (8-16); BILIRUBIN,TOTAL 0.5 mg/dL (0.2-1.0); CALCIUM 8.6 mg/dL (8.5-10.1); CO2 26 mmol/L (21-32); CREATININE 4.6 mg/dL (0.55-1.02); GLUCOSE,RANDOM 99 mg/dL (74-106); SGOT/AST 12 U/L (15-37); SGPT/ALT 16 U/L (12-78); TOT PROT 6.3 g/dl (6.4-8.2)
--- NOTE | 2016-12-11 12:17 | PN ---
Progress Note (short form) - Note Progress Note: Full consult dictated 86F, patient of Dr. Trejo's with anorectal pain and constipation. has flex sig scheduled for 12/25 On exam: No abdominal tenderness JITENDRA: No masses palpated, no external lesion, mild TTP upon insertion of finger into the rectum. Light arce stool guaiac negative Imp: Constipation and anorectal pain Plan: MiraLAX 17g BID for 3 days followed by once daily Anusol HC suppositories 1 [place] BID She will need follow-up with Dr. Trejo If no improvement, flex sig could be performed. Eliquis would need to be held for 2 days given her GFR, otherwise this can be pursued as an outpatient At Mainor's request I called her trino Urena to discuss the plan with her. [phone]
--- NOTE | 2016-12-11 13:36 | CONS ---
GASTROENTEROLOGY CONSULTATION DATE OF CONSULTATION: 12/11/2016 REQUESTING PHYSICIAN: Lsia Parada MD The patient is an 86-year-old woman admitted for evaluation of constipation and anorectal discomfort. She is followed by forklift mechanic, Dr. Hebert Trejo, who last saw her in the office November 21, 2016, for similar complaints. She had last undergone colonoscopy with him in November 2011, that led to the removal of a small tubulovillous adenoma from the transverse colon, and she was found to have diverticulosis and internal hemorrhoids. His last note from that time also notes that she had a CT scan done December 2012, suggesting the presence of rectal prolapse and perianal thickening, as well as hyperdense and hypodense cystic lesions in the kidneys. His last note alludes to having seen her in June 2015, for complaints of anorectal discomfort, constipation, and incomplete evacuation, as well as excessive gas build-up. From November 21, his recommendations at that time were that she increase water intake, daily bulk fiber intake, and he gave her an empiric trial of twice daily FiberCon, Citrucel, and that she uses a capsule of MiraLAX if she skipped a bowel movement. It also appears that he spoke to her via the phone November 23. At that time, she felt that she may have dropped her uterus. He advised a [employer] followup. She also felt that there was something hanging out of her rectum, and he did note that from his rectal exam 48 hours ago, nothing was hanging out of her rectum. He also advised a flexible sigmoidoscopy for November 2012, and apparently, she was unable to do so and would consider a flexible sigmoidoscopy on November 28. This does not appear to have taken place. It also appears as though he spoke to her on November 26, and she did complain that her rectum continued to hurt upon defecation. He again advised a flexible sigmoidoscopy for November 2013, but she was unable to and consider doing one November 2015. He spoke with her again December 05, as she was in the [facility] Emergency Room with the same complaints. He had spoken to Dr. Jensen in the emergency room, and apparently, his digital rectal exam was negative. She had no abdominal pain, and apparently, she has a flexible sigmoidoscopy scheduled for December 25, 2016. When I spoke with the patient about this, she was unclear regarding that. PAST MEDICAL HISTORY: Includes hypertension, GERD, hyperlipidemia, end-stage renal disease on hemodialysis, diverticulosis, colon adenoma in 2012, hemorrhoidal bleeding and pain, renal cysts, question of a rectocele. PAST SURGICAL HISTORY: She had a tonsillectomy in 1942. SOCIAL HISTORY: She was born in the [place]. 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 No history of alcohol abuse. No history of intravenous drug abuse or illicit drugs. FAMILY HISTORY: Father of natural causes. Mother of natural causes. Siblings of natural causes. Eight children, 2 , 1 was stillborn, 1 in infancy, and 6 are healthy. MEDICATIONS PRIOR TO ADMISSION: Include Eliquis, omeprazole, furosemide, sodium bicarbonate, and Sensipar. ALLERGIES: No known drug allergies. She does have seasonal allergies. REVIEW OF SYSTEMS: She denies any chest pain or shortness of breath, nausea, vomiting, rectal bleeding. She did complain of anorectal discomfort. She complained of pelvic pain. There has been no diarrhea. She does complain of constipation. There has been no melena reported. PHYSICAL EXAMINATION: General: The patient is found lying in her bed. She was receiving dialysis. Vital Signs: Temperature was 98.2, pulse 96, blood pressure 156/82. HEENT: Her sclerae are anicteric. Neck: Supple. Heart: Regular rate and rhythm. She did have a 2/6 systolic murmur heard best at the left sternal border. Lungs: Clear to auscultation bilaterally. Abdomen: The abdomen was nondistended. There were no scars. She had normoactive bowel sounds. No hepatosplenomegaly was appreciated. No masses were palpated. No hernias detected. No tenderness was elicited. Extremities: No lower extremity edema. Rectal: Digital rectal exam: No external lesions and no masses were palpated. There was no fecal impaction. She had scant arce stool in the rectal vault, which was guaiac negative. Of note, the patient turned quickly while I was examining her rectum, and she pulled out her dialysis catheter from her fistula in her right arm. It did bleed. However, pressure was applied to the fistula, and she was eventually recannulated and resumed dialysis without further complications. LABORATORY EVALUATION: White blood count 3.6, hemoglobin 9.9, hematocrit 30.6, platelets of 173. INR of 1.80, PTT 66.8. Sodium 138, potassium 4.2, chloride 101, bicarbonate 26, BUN of 42, creatinine 4.6, AST of 12, ALT of 16, alkaline phosphatase 133, total bilirubin 0.5 with an albumin of 3.3. RADIOLOGY REPORT: She had a CT scan of the abdomen and pelvis performed last night with oral contrast, revealing a markedly limited study; bilateral pleural effusions and pericardial effusion; a 1.3-cm hypodensity within the right lobe of the liver; and an ultrasound followup was recommended; a 1.8-cm hypodensity within the spleen; multiple hypodense and hyperdense renal masses; a 3.8-cm abdominal aortic aneurysm; diverticulosis with no evidence of acute pathology within the abdomen or pelvis. IMPRESSION: An 86-year-old female with anorectal discomfort and constipation. She does have outpatient workup scheduled for December 25. However, she was unclear regarding this. For now, I would recommend MiraLAX 17 g b.i.d. for 3 days, followed by once daily; Anusol-HC suppositories 1 [place] b.i.d.; follow up with Dr. Trejo. If there is no improvement, flexible sigmoidoscopy could be performed while an inpatient. The Eliquis would need to be held for 2 days given her GFR. Otherwise, this can be pursued as an outpatient as above. At the patient's request, I called her granddaughter to discuss the plan with her as well. The number she gave me was [phone]. Other recommendations pending the patient's clinical course. Thank you for this consultative opportunity. CURRY BYERS DO CD/[id number]
[2016-12-11] MEDS ORDERED: PT OWN MED DRAWER 7, Y5N ONE (14:33)
[2016-12-11] MEDS: CINACALCET HCL 30 MG TAB (FP) PO SCH (14:34)
[2016-12-11] MEDS: APIXABAN 2.5 MG TABLET PO SCH ×2 (14:34→21:09)
[2016-12-11] MEDS: FUROSEMIDE 40 MG TABLET (FP) PO SCH (14:34)
[2016-12-11] MEDS: SODIUM BICARBONATE 650 MG TABLET PO SCH ×2 (14:34→21:09)
[2016-12-11] MEDS: HYDROCORTISONE ACETATE 25 MG/SUPP.RECT PR SCH ×2 (17:20→21:09)
[2016-12-11] MEDS: POLYETHYLENE GLYCOL 3350 119 GM BTL PO SCH (21:09)
[2016-12-12] MEDS ORDERED: PT OWN MED DRAWER 7, Y5N ONE (09:44)
[2016-12-12] MEDS: SODIUM BICARBONATE 650 MG TABLET PO SCH (09:59)
[2016-12-12] MEDS: FUROSEMIDE 40 MG TABLET (FP) PO SCH (09:59)
[2016-12-12] MEDS: APIXABAN 2.5 MG TABLET PO SCH (09:59)
[2016-12-12] MEDS: CINACALCET HCL 30 MG TAB (FP) PO SCH (09:59)
[2016-12-12] MEDS: POLYETHYLENE GLYCOL 3350 119 GM BTL PO SCH (10:00)
[2016-12-12] MEDS: HYDROCORTISONE ACETATE 25 MG/SUPP.RECT PR SCH (10:01)
--- NOTE | 2016-12-12 11:17 | PN ---
Progress Note, Physician Chief Complaint: I saw the patient yesterday, and had written her Consultation notes. But my notes are completely gone!!! The patient is an 86-year-old woman with a past medical history of hypertension , gastroesophageal reflux disease and end-stage renal disease (on hemo-dialysis T/T/S) who was advised to present to the Emergency department by her PMD, Dr. Rock Streeter for evaluation of an anal fissure. The patient started to experience rectal pain and attempted to use suppositories, which did not help. She has also developed suprapubic abdominal pain. She was seen at her PMD's office, who stated that the patient had an anal fissure. No blood per rectum. No other complaints. The patient received hemodialysis yesterday. She had central venous stenosis, and had markedly swollen right arm and right breast. Dr. Rambo Ma had done venoplasty and stenting, after which the swelling is improving. The abdominal pain is better. Feels gassy today. - Current Medication List Current Medications: Active Medications Apixaban (Eliquis -) 2.5 mg PO BID [facility] Last Admin: 12/12/16 09:59 Dose: 2.5 mg Cinacalcet (Sensipar -) 30 mg PO DAILY [facility] Last Admin: 12/12/16 09:59 Dose: 30 mg Furosemide (Lasix -) 40 mg PO DAILY [facility] Last Admin: 12/12/16 09:59 Dose: 40 mg Hydrocortisone Acetate (Anusol Hc Suppository -) 25 mg [place] BID [facility] Stop: 12/13/16 10:01 Last Admin: 12/12/16 10:01 Dose: 25 mg Polyethylene Glycol (Miralax (For Daily Use) -) 17 gm PO BID [facility] Last Admin: 12/12/16 10:00 Dose: 17 gm Sodium Bicarbonate (Sodium Bicarbonate -) 650 mg PO BID [facility] Last Admin: 12/12/16 09:59 Dose: 650 mg - Objective Vital Signs: Vital Signs Temperature 98.2 F 12/12/16 06:00 Pulse Rate 86 12/12/16 06:00 Respiratory Rate 18 12/12/16 06:00 Blood Pressure 152/63 12/12/16 06:00 O2 Sat by Pulse Oximetry (%) 96 12/11/16 22:00 Constitutional: Yes: Calm Eyes: Yes: Conjunctiva Clear HENT: Yes: Normocephalic Cardiovascular: Yes: S1, S2 Respiratory: Yes: CTA Bilaterally Gastrointestinal: Yes: Normal Bowel Sounds. No: Rectal Bleeding Genitourinary: No: CVA Tenderness - Left, CVA Tenderness - Right Musculoskeletal: Yes: Back Pain, Joint Stiffness Edema: Yes Edema: RUE: 1+ Labs: CBC, BMP 12/11/16 09:30 12/11/16 09:30 INR, PTT INR 1.80 (0.82-1.09) H D 12/10/16 14:16 Assessment/Plan 86 y/o female admitted with rectal pain, abdominal pain and constipation. ? Anal fissure. Reports feeling a little better. No chest pain, or Shortness of breath. Moved her bowels today. Will schedule for HD tomorrow.
[2016-12-12] MEDS ORDERED: SIMETHICONE 80 MG TAB.CHEW (FP) PO PRN (12:00)
[2016-12-12 14:01] VITALS: BP 140/80; PULSE 84; TEMP 98.3
[2016-12-13] MEDS ORDERED: EPOETIN ALFA 10,000 UNIT/1 ML VIAL SQ ONE (11:23)
[2016-12-14 00:07] LABS: HEP B SURFACE AB Non Reactive (.)
== END 2016-12-12 14:26 | disposition home or self-care (01) | DRG 391 ==
LOC: JER 12:57 → JERBED 15:52 → J5S 17:20
PROVIDERS: ADMIT Family Medicine; ATTEND Family Medicine
PROC: 5A1D00Z (ICD-10-PCS; principal; 2016-12-11)
DX: K59.00 Constipation, unspecified (principal); N18.6 End stage renal disease; I12.0 Hypertensive chronic kidney disease with stage 5 chronic kidney disease or end stage renal disease; K60.2 Anal fissure, unspecified; K21.9 Gastro-esophageal reflux disease without esophagitis; Z99.2 Dependence on renal dialysis; K64.8 Other hemorrhoids
CPT/HCPCS: 36415; 74176-TC; 80053; 85025; 85610; 85730; 86704; 86706; 86708; 86803; 87340; 99284-25; G0463-25; J0885

== ENCOUNTER 2017-03-15 08:03 | Day surgery (SDC) | payer OTHER ==
[2017-03-14 11:04] VITALS: BMI 21.9
[2017-03-15] MEDS ORDERED: ceFAZolin SODIUM 1 GM VIAL ONE (09:19)
[2017-03-15] MEDS ORDERED: PROPOFOL 20 ML ONE (09:19)
[2017-03-15] MEDS ORDERED: LIDOCAINE HCL/PF 2% SDV 5ML VIAL ONE (09:19)
[2017-03-15] MEDS ORDERED: LIDOCAINE HCL 1%, 10 MG/ML (20ML VIAL) INF ONE ×2 (09:22→09:29)
--- NOTE | 2017-03-15 10:09 | OP ---
Operative Note - Note: Operative Date: 03/15/17 Pre-Operative Diagnosis: right upper ext swelling Operation: right avg venogram, venoplasty Post-Operative Diagnosis: Same as Pre-op Surgeon: Rambo Ma Anesthesia: Fractional Estimated Blood Loss (mls): 50 Operative Report Dictated: Yes
--- NOTE | 2017-03-15 10:12 | HP ---
Admitting History and Physical - Admission Chief Complaint: right upper ext swelling - Past Medical History Cardiovascular: Yes: HTN Gastrointestinal: Yes: Constipation Renal/: Yes: Renal Failure, Hemodialysis Heme/Onc: Yes: Anemia ENT: Yes: Allergic Rhinitis - Past Surgical History Past Surgical History: Yes: AV Fistula/Graft - Smoking History Smoking history: Former smoker Have you smoked in the past 12 months: No Aproximately how many cigarettes per day: 0 If you are a former smoker, when did you quit?: 40 YRS - Alcohol/Substance Use Hx Alcohol Use: No - Social History ADL: Independent History of Recent Travel: No Home Medications - Allergies Allergies/Adverse Reactions: Allergies Allergy/AdvReac Type Severity Reaction Status Date / Time No Known Drug Allergies Allergy Verified 12/10/16 13:03 SEASONAL ALLERGIES Allergy Intermediate Uncoded 12/10/16 13:03 - Home Medications Home Medications: Ambulatory Orders Furosemide [Lasix -] 80 mg PO DAILY 03/03/15 Apixaban [Eliquis] 2.5 mg PO BID 30 Days 06/22/15 Cinacalcet HCl [Sensipar -] 30 mg PO DAILY tab 12/12/16 Hydrocortisone Acetate [Anusol Hc Suppository -] 25 mg [place] BID supp.rect Polyethylene Glycol 3350 [Miralax 119 gm Btl -] 17 gm PO BID bottle 12/12/16 Simethicone [Mylicon -] 80 mg PO Q6HPO PRN #0 tab.chew 12/12/16 Sodium Bicarbonate - 650 mg PO BID tablet 12/12/16 Physical Examination Vital Signs: Vital Signs Temperature 97.5 F L 03/15/17 08:35 Pulse Rate 75 03/15/17 08:35 Respiratory Rate 20 03/15/17 08:35 Blood Pressure 137/72 03/15/17 08:35 O2 Sat by Pulse Oximetry (%) 99 03/15/17 08:35 Constitutional: Yes: Well Nourished Eyes: Yes: WNL HENT: Yes: WNL Neck: Yes: WNL Cardiovascular: Yes: WNL Respiratory: Yes: WNL Gastrointestinal: Yes: WNL Musculoskeletal: Yes: WNL Extremities: Yes: WNL Edema: Yes Labs: CBC, BMP 03/15/17 08:18 Assessment/Plan right upper ext swelling 1. for venogram, venoplasty today
[2017-03-15] MEDS ORDERED: ONDANSETRON 4 MG/2 ML VIAL IVPUSH PRN (10:23)
[2017-03-15 12:23] VITALS: TEMP 97.5
[2017-03-15 14:09] VITALS: BP 144/60; PULSE 83
--- NOTE | 2017-03-21 07:19 | OP ---
DATE OF OPERATION: 03/15/2017 PREOPERATIVE DIAGNOSIS: Right upper extremity swelling. POSTOPERATIVE DIAGNOSIS: Right upper extremity swelling. PROCEDURE PERFORMED: Right arteriovenous graft venogram and venoplasty. SURGEON: Rambo Chaney DO ANESTHESIA: Fractional. BLOOD LOSS: 10 mL. INDICATIONS: The patient is an 86-year-old female who has right upper extremity swelling and right breast swelling. She has central vein stenosis, for which we placed a stent about 3-1/2 months ago. It was decided that she would need another venogram to assess the stent. DESCRIPTION OF PROCEDURE: The patient was consented for the procedure, understanding all risks, benefits and alternatives, and then taken to the operating room. Once in the operating room, the patient was laid on the operating table in the supine manner. The area of the right upper extremity was prepped and draped in a sterile surgical manner. We then went ahead and took a micropuncture needle and punctured the right AV graft. Micropuncture wire was inserted. A micropuncture sheath was inserted and an additional 7-German sheath was inserted. We then shot our venogram, showing that the AV graft was patent, but the venous anastomosis had an 80% stenosis. We also found that the central venous stent going into the SVC was occluded. At this point we placed a 0.035 floppy guidewire, followed by a Chucho catheter. We then exchanged the wire for a stiff wire to get it across the stent, and the wire was placed in the SVC. We then went ahead and used a 7 x 8 drug-coated balloon and we performed venoplasty of the venous anastomosis. Completion venogram now showed that the graft was patent, the venous anastomosis was patent, and there was no recoil. We then went ahead and placed a 9 x 8 [place] balloon into the central venous stent and we performed venoplasty of the stent. Completion venogram now showed that the stent was patent and there was good outflow into the SVC and down into the heart. At this point, we removed our wire. Using a 4-0 Biosyn stitch, we placed a [id number] stitch around our sheath and the sheath was pulled. The area was wet and dried, and Dermabond was placed. The patient tolerated the procedure with no complication. The patient was transferred back in stable condition. Total blood loss was 10 mL. RAMBO CHANEY DO [employer]/[id number]
== END 2017-03-15 14:00 | disposition home or self-care (01) ==
LOC: JASU-SURG 08:03
PROVIDERS: ATTEND Surgery Vascular Surgery
PROC: 05753ZZ Dilation of Right Subclavian Vein, Percutaneous Approach (ICD-10-PCS; principal; 2017-03-15 09:00)
DX: T82.858A Stenosis of other vascular prosthetic devices, implants and grafts, initial encounter (principal); I12.0 Hypertensive chronic kidney disease with stage 5 chronic kidney disease or end stage renal disease; N18.6 End stage renal disease; Z99.2 Dependence on renal dialysis
CPT/HCPCS: 36415; 76000-TC; 84132; 94760

== ENCOUNTER 2017-04-26 06:28 | Day surgery (SDC) | payer OTHER ==
[2017-04-25 14:33] VITALS: BMI 21.1
[2017-04-26] MEDS ORDERED: HEPARIN NA (PORCINE) 5,000 UNITS/ML 1ML VIAL ONE ×2 (07:20→08:09)
[2017-04-26] MEDS ORDERED: MIDAZOLAM HCL 2 MG/2 ML SINGLE DOSE VIAL ONE (08:09)
[2017-04-26] MEDS ORDERED: ceFAZolin SODIUM 1 GM VIAL ONE (08:14)
[2017-04-26] MEDS ORDERED: ceFAZolin SODIUM 1 GM VIAL IVPB ONE (08:16)
[2017-04-26] MEDS ORDERED: LIDOCAINE HCL 1%, 10 MG/ML (20ML VIAL) PNB ONE (08:22)
[2017-04-26] MEDS ORDERED: ADENOSINE 6 MG/2 ML VIAL IVPUSH ONE (08:26)
[2017-04-26] MEDS ORDERED: LIDOCAINE HCL/PF 2% SDV 5ML VIAL ONE (08:26)
[2017-04-26] MEDS ORDERED: PROPOFOL 20 ML ONE (08:26)
[2017-04-26] MEDS ORDERED: ONDANSETRON 4 MG/2 ML VIAL IVPUSH PRN (08:48)
--- NOTE | 2017-04-26 08:51 | OP ---
Operative Note - Note: Operative Date: 04/26/17 Pre-Operative Diagnosis: Stenosis central veins of left avg Operation: venogram, venoplasty left avg Findings: Stent closed in the central veins Post-Operative Diagnosis: Same as Pre-op Surgeon: Rambo Ma Anesthesia: Fractional Estimated Blood Loss (mls): 20 Operative Report Dictated: Yes
--- NOTE | 2017-04-26 08:53 | HP ---
Admitting History and Physical - Admission Chief Complaint: left arm, breast swelling Limitations to Obtaining History: No Limitations - Past Medical History Cardiovascular: Yes: HTN Gastrointestinal: Yes: Constipation Renal/: Yes: Renal Failure, Hemodialysis Heme/Onc: Yes: Anemia ENT: Yes: Allergic Rhinitis - Past Surgical History Past Surgical History: Yes: AV Fistula/Graft - Smoking History Smoking history: Former smoker Have you smoked in the past 12 months: No Aproximately how many cigarettes per day: 0 If you are a former smoker, when did you quit?: 40 YRS - Alcohol/Substance Use Hx Alcohol Use: No - Social History ADL: Independent History of Recent Travel: No Home Medications - Allergies Allergies/Adverse Reactions: Allergies Allergy/AdvReac Type Severity Reaction Status Date / Time No Known Drug Allergies Allergy Verified 04/26/17 07:14 SEASONAL ALLERGIES Allergy Intermediate Uncoded 04/26/17 07:14 - Home Medications Home Medications: Ambulatory Orders Furosemide [Lasix -] 80 mg PO DAILY 03/03/15 Apixaban [Eliquis] 2.5 mg PO BID 30 Days 06/22/15 Cinacalcet HCl [Sensipar -] 30 mg PO DAILY tab 12/12/16 Hydrocortisone Acetate [Anusol Hc Suppository -] 25 mg [place] BID supp.rect Polyethylene Glycol 3350 [Miralax 119 gm Btl -] 17 gm PO BID bottle 12/12/16 Simethicone [Mylicon -] 80 mg PO Q6HPO PRN #0 tab.chew 12/12/16 Sodium Bicarbonate - 650 mg PO BID tablet 12/12/16 Acetaminophen W/ Codeine #3 [Tylenol # 3 -] 1 tab PO Q6H #30 tablet MDD 4 Review of Systems - Review of Systems Constitutional: reports: No Symptoms Eyes: reports: No Symptoms HENT: reports: No Symptoms Neck: reports: No Symptoms Cardiovascular: reports: No Symptoms Respiratory: reports: No Symptoms Gastrointestinal: reports: No Symptoms Genitourinary: reports: No Symptoms Breasts: reports: No Symptoms Reported Musculoskeletal: reports: No Symptoms Integumentary: reports: No Symptoms Neurological: reports: No Symptoms Hematology/Lymphatic: reports: No Symptoms Physical Examination Vital Signs: Vital Signs Temperature 97.5 F L 04/26/17 07:11 Pulse Rate 88 04/26/17 07:11 Respiratory Rate 18 04/26/17 07:11 Blood Pressure 135/75 04/26/17 07:11 O2 Sat by Pulse Oximetry (%) 96 04/26/17 07:12 Constitutional: Yes: Well Nourished Eyes: Yes: WNL HENT: Yes: WNL Neck: Yes: WNL Cardiovascular: Yes: WNL Respiratory: Yes: WNL Gastrointestinal: Yes: WNL Musculoskeletal: Yes: WNL Extremities: Yes: WNL Edema: Yes Edema: LUE: 2+ Peripheral Pulses WNL: Yes Neurological: Yes: WNL ...Motor Strength: WNL Psychiatric: Yes: WNL Labs: CBC, BMP 04/26/17 06:41 Problem List - Problems (1) ESRD (end stage renal disease) Code(s): N18.6 - END STAGE RENAL DISEASE Assessment/Plan Central vein stenosis right avg 1. for venogram today
[2017-04-26] MEDS ORDERED: SODIUM CHLORIDE 1,000 ML IV SCH (09:00)
[2017-04-26 09:42] VITALS: TEMP 97.5
--- NOTE | 2017-04-26 09:44 | OP ---
DATE OF OPERATION: 04/26/2017 PREOPERATIVE DIAGNOSIS: Stenosis, left arteriovenous graft in the central veins. POSTOPERATIVE DIAGNOSIS: Stenosis, left arteriovenous graft in the central veins. PROCEDURE: Venogram, venoplasty central veins of right arteriovenous graft. SURGEON: Rambo Chaney DO ANESTHESIA: Fractional. BLOOD LOSS: 20 mL. DESCRIPTION OF PROCEDURE: The patient is an 86-year-old female who has a stent in her central veins for her right AV graft. She has now swelling of her right arm and her right breast, probably due to the fact that the stent is now closed, and she needs a diagnostic venogram. Patient came into ambulatory surgery. Patient was consented for the procedure, understanding all risks, benefits, alternatives, was then taken to the operating room. Once in the operating room, she was laid on the operating table in supine manner. The area of the right arm was prepped and draped in a sterile surgical manner. We then injected 10 mL of 0.5% over the proximal right AV graft. We then went ahead and placed a Micropuncture needle. Micropuncture wire was inserted. Micropuncture sheath was inserted. A 0.035 floppy guidewire was inserted and a traditional short 7-Bengali sheath was inserted. We then shot a venogram showing that the graft was patent, the venous anastomosis was patent, but the stent in the central veins going from innominate into the SVC was closed. At this point we administered 3000 units of IV heparin to the patient, placed a 0.035 floppy guidewire followed by a 65 catheter and selectively cannulated and crossed the occluded stent. We then exchanged for a 180 Amplatz wire. We then used a 10 x 8 Summers balloon and performed venoplasty of the entire stent and the SVC and the innominate vein as well. Completion venogram showed that now the stent was patent. There was good outflow into the SVC. At this point, surgery a 4-0 Biosyn stitch, we made a [id number] stitch around the sheath, and the sheath was pulled. The area was wet and dried and Dermabond was placed. Patient tolerated the procedure with no complication. Patient transferred to PACU in stable condition. RAMBO CHANEY DO [employer]HER OPERATOR/[id number]
[2017-04-26 14:34] VITALS: BP 135/70; PULSE 80
== END 2017-04-26 12:00 | disposition home or self-care (01) ==
LOC: JASU-SURG 06:28
PROVIDERS: ATTEND Surgery Vascular Surgery
PROC: 05763ZZ Dilation of Left Subclavian Vein, Percutaneous Approach (ICD-10-PCS; principal; 2017-04-26 08:00)
DX: T82.858D Stenosis of other vascular prosthetic devices, implants and grafts, subsequent encounter (principal); I12.0 Hypertensive chronic kidney disease with stage 5 chronic kidney disease or end stage renal disease; N18.6 End stage renal disease; Z99.2 Dependence on renal dialysis
CPT/HCPCS: 36415; 76000-TC; 84132; 94760; J1644

== ENCOUNTER 2017-06-30 08:08 | Emergency (ER) | payer OTHER ==
[2017-06-30 08:13] VITALS: BP 159/89; PULSE 93; TEMP 97.4; BMI 19.6
--- NOTE | 2017-06-30 08:32 | PDOC ---
Attending Attestation - HPI HPI: 06/30/17 09:49 The patient is a 86 year old female, with a significant past medical history of hypertension, gastroesophageal reflux disease and end-stage renal disease (on hemo-dialysis q. Saturday//Saturday, who presents to the emergency department with abdominal pain and dizziness for the past 3 days. She describes her pain as ranging from mild to moderate, localized in the epigastric region. She denies any radiation or modifying factors. She notes that she was recently at [facility] where she got a CT performed. The patient denies chest pain, shortness of breath, headache. Denies fever, chills, nausea, vomit, diarrhea and constipation. Denies dysuria, frequency, urgency and hematuria. Allergies: No Known Drug Allergies. Seasonal Allergies. Past Surgical History: None reported. Social History: No tobacco, EtOH and recreational drug use. - Physicial Exam PE: 06/30/17 09:49 GENERAL: Awake, alert, and fully oriented, in no acute distress HEAD: No signs of trauma, normocephalic, atraumatic EYES: PERRLA, EOMI, sclera anicteric, conjunctiva clear ENT: Auricles normal inspection, hearing grossly normal, nares patent, oropharynx clear without exudates. Moist mucosa NECK: Normal ROM, supple, no lymphadenopathy, JVD, or masses LUNGS: No distress, speaks full sentences, clear to auscultation bilaterally HEART: Regular rate and rhythm, normal S1 and S2, no murmurs, rubs or gallops, peripheral pulses normal and equal bilaterally. ABDOMEN: (+) Epigastric tenderness to palpation. Soft, normoactive bowel sounds. No guarding, no rebound. No masses EXTREMITIES : (+) Old fistula on the left upper extremety. Active fistula on the right upper extremity. Normal range of motion, no edema. No clubbing or cyanosis. NEUROLOGICAL: Cranial nerves II through XII grossly intact. Normal speech, no focal sensorimotor deficits SKIN: Warm, Dry, normal turgor, no rashes or lesions noted. <Levy Roberts - Last Filed: 06/30/17 09:49> - Resident Resident Name: Edgar Abraham - ED Attending Attestation I have performed the following: I have examined & evaluated the patient, The case was reviewed & discussed with the resident, I agree w/resident's findings & plan, Exceptions are as noted - Medical Decision Making 06/30/17 08:32 I, Dr. Lori Madsen, DO, attest that this document has been prepared under my direction and personally reviewed by me in its entirety. I further attest, that it accurately reflects all work, treatment, procedures and medical decision -making performed by me. 06/30/17 09:33 a/p: 86yo female with dizziness and abd pain -hx of constipation -hx of chronic abd pain -had HD yesterday -will check labs, ekg, cxr -dizziness currently resolved 06/30/17 12:07 pt feeling better labs reviewed no UTI symptoms dizziness resolved no abd pain no fecal impaction stable for d/c to home and to follow up with Gwen tomorrow <Lori Madsen - Last Filed: 06/30/17 12:07> Heart Score/ECG Review - ECG Intrepretation Comment:: 06/30/17 09:34 sinus at 77, nl axis, nl interval, t wave flattening diffusely, poor r wave progression <Lori Madsen - Last Filed: 06/30/17 12:07>
[2017-06-30] MEDS ORDERED: PANTOPRAZOLE SODIUM 40 MG VIAL IVPB ONE (08:35)
[2017-06-30] MEDS ORDERED: ONDANSETRON 4 MG/2 ML VIAL IVPUSH ONE ×2 (08:35→09:11)
[2017-06-30] MEDS ORDERED: FAMOTIDINE 20 MG/50 ML IVPB 20 MG/50 ML MG IVPB ONE ×2 (08:35→09:11)
[2017-06-30] MEDS ORDERED: METOCLOPRAMIDE HCL INJECTION 10 MG/2 ML VIAL IVPUSH ONE (08:45)
[2017-06-30] MEDS ORDERED: PANTOPRAZOLE SODIUM 40 MG VIAL ONE (09:11)
[2017-06-30] MEDS ORDERED: ONDANSETRON 4 MG/2 ML VIAL ONE (09:11)
[2017-06-30 09:12] LABS: BASO % 1.7 % (0-2.0); EOS % 0.9 % (0-4.5); HEMATOCRIT 36.8 % (32.4-45.2); HEMOGLOBIN 11.8 GM/dL (10.7-15.3); LYMPH % 22.6 % (8-40); MCH 27.5 pg (25.7-33.7); MCHC 31.9 g/dl (32.0-36.0); MEAN CELL VOLUME 86.1 fl (80-96); MEAN PLT VOLUME 7.8 fl (7.5-11.1); MONO % 14.8 % (3.8-10.2); PLATELET COUNT 137 K/MM3 (134-434); RBC 4.28 M/mm3 (3.60-5.2); RDW 16.7 % (11.6-15.6)
--- NOTE | 2017-06-30 09:28 | PDOC ---
History of Present Illness - General Chief Complaint: Lightheaded Stated Complaint: DIZZINESS/ABD PAIN Time Seen by Provider: 06/30/17 08:16 History Source: Patient Exam Limitations: No Limitations - History of Present Illness Initial Comments: 06/30/17 09:06 Patient is an 86F with history of constipation, HTN, GERD and ESRD on [facility] dialysis here today complaining of dizziness for the past 3 days, which she says has now resolved. She denies chest pain and shortness of breath. Her main concern today is abdominal pain and constipation. She complains of a generalized abdominal pain with some nausea over the past several months. She says she has problems with constipation, but has had a bowel movement every day. Endorses associated fevers and chills. Last bowel movement was yesterday. Makes little urine, no pain with urination. Denies chest pain and shortness of breath. Past History - Past Medical History Allergies/Adverse Reactions: Allergies Allergy/AdvReac Type Severity Reaction Status Date / Time No Known Drug Allergies Allergy Verified 06/30/17 08:13 SEASONAL ALLERGIES Allergy Intermediate Uncoded 06/30/17 08:13 Home Medications: Ambulatory Orders Furosemide [Lasix -] 80 mg PO DAILY 03/03/15 Apixaban [Eliquis] 2.5 mg PO BID 30 Days 06/22/15 Cinacalcet HCl [Sensipar -] 30 mg PO DAILY tab 12/12/16 Hydrocortisone Acetate [Anusol Hc Suppository -] 25 mg [place] BID supp.rect Polyethylene Glycol 3350 [Miralax 119 gm Btl -] 17 gm PO BID bottle 12/12/16 Simethicone [Mylicon -] 80 mg PO Q6HPO PRN #0 tab.chew 12/12/16 Sodium Bicarbonate - 650 mg PO BID tablet 12/12/16 Cephalexin [Keflex] 500 mg PO BID #14 capsule 06/30/17 Anemia: No Asthma: No Cancer: No Cardiac Disorders: No CVA: No COPD: No CHF: No DVT: No Dementia: No Diabetes: No Dialysis: Yes () GI Disorders: Yes (GERD) Disorders: No HTN: Yes Hypercholesterolemia: No Liver Disease: No Seizures: No Thyroid Disease: Yes (on synthroid) - Surgical History Abdominal Surgery: No Appendectomy: No Cardiac Surgery: No Cholecystectomy: No Lung Surgery: No Neurologic Surgery: No Orthopedic Surgery: No - Immunization History Immunization Up to Date: Yes - Suicide/Smoking/Psychosocial Hx Smoking Status: No Smoking History: Never smoked Have you smoked in the past 12 months: No Number of Cigarettes Smoked Daily: 0 If you are a former smoker, when did you quit?: 40 YRS Hx Alcohol Use: No Drug/Substance Use Hx: No Substance Use Type: None Hx Substance Use Treatment: No Review of Systems - Review of Systems Comments:: 06/30/17 09:28 GENERAL/CONSTITUTIONAL: Positive for fever or chills. HEAD, EYES, EARS, NOSE AND THROAT: No change in vision. No sore throat. CARDIOVASCULAR: No chest pain or shortness of breath RESPIRATORY: No cough, wheezing, or hemoptysis. GASTROINTESTINAL: Positive for nausea. Negative for vomiting, diarrhea or constipation. GENITOURINARY: No dysuria, frequency, or change in urination. MUSCULOSKELETAL: No joint or muscle swelling or pain. No neck or back pain. SKIN: No rash NEUROLOGIC: Positive for headache. Negative for loss of consciousness, or change in strength/sensation. ENDOCRINE: No increased thirst. No abnormal weight change ALLERGIC/IMMUNOLOGIC: No hives or skin allergy. *Physical Exam - Vital Signs Last Vital Signs Temp Pulse Resp BP Pulse Ox 97.4 F L 93 H 20 159/89 98 06/30/17 08:10 06/30/17 08:10 06/30/17 08:10 06/30/17 08:10 06/30/17 08:10 - Physical Exam Comments: 06/30/17 09:29 GENERAL: Awake, alert, and fully oriented, in no acute distress HEAD: No signs of trauma, normocephalic, atraumatic EYES: PERRLA, EOMI, sclera anicteric, conjunctiva clear ENT: Auricles normal inspection, hearing grossly normal, nares patent, oropharynx clear without exudates. Moist mucosa LUNGS: No distress, speaks full sentences, clear to auscultation bilaterally HEART: Regular rate and rhythm, normal S1 and S2, no murmurs, rubs or gallops, peripheral pulses normal and equal bilaterally. ABDOMEN: Soft, minimally tender diffusely, normoactive bowel sounds. No guarding, no rebound. No masses EXTREMITIES: Normal inspection, Normal range of motion, no edema. No clubbing or cyanosis. Thrill in right arm fistula. Non-working fistula in left arm. NEUROLOGICAL: Cranial nerves II through XII grossly intact. Normal speech, normal gait, no focal sensorimotor deficits SKIN: Warm, Dry, normal turgor, no rashes or lesions noted. RECTAL: Small external hemorrhoid. Tender. Small amount of stool felt. ED Treatment Course - LABORATORY CBC & Chemistry Diagram: 06/30/17 08:50 06/30/17 08:50 - RADIOLOGY Radiology Studies Ordered: Category Date Time Status ABDOMEN-KUB FLAT PLATE [RAD] Stat Radiology 06/30/17 08:45 Ordered Medical Decision Making - Medical Decision Making 06/30/17 09:54 86F with history of HTN, HERD, ESRD on [facility] here today with dizziness, constipation and abdominal pain. Vital signs stable and normal. Had CT scan last week at [facility] that was negative. Call out for results. Has GI follow up scheduled for tomorrow. Appears well. Will workup with abdominal labs, trop, ekg , head ct. Head CT done at [facility] on 06/26/17 shows no appreciation of acute process or other concerning interval change. Shows some features of fluid overload status, no worse than before. 06/30/17 12:01 Laboratory Tests 06/30/17 06/30/17 06/30/17 08:50 08:50 08:50 WBC 3.0 L Hgb 11.8 D Hct 36.8 D Plt Count 137 D INR 1.25 H D BUN 35 H Creatinine 3.2 H Ur Leukocyte Esterase Urine WBC (Auto) Stool Occult Blood 06/30/17 06/30/17 09:20 09:45 WBC Hgb Hct Plt Count INR BUN Creatinine Ur Leukocyte Esterase 2+ H Urine WBC (Auto) 7 Stool Occult Blood Negative CBC normal. INR normal. Cr consistent with dialysis patient. UA shows 2+ LE with 7 WBC. No pain with urination, will not treat. Stool for occult blood negative. Patient no longer tender in abdomen. Has GI follow up tomorrow. Will discharge with PCP and GI follow up. 06/30/17 12:21 At discharge, patient stated that she has some pain with urination. Discharged with keflex. Ambulatory with walker at discharge. *DC/Admit/Observation/Transfer Diagnosis at time of Disposition: Constipation - Discharge Dispostion Condition at time of disposition: Good Admit: No - Prescriptions Prescriptions: Cephalexin [Keflex] 500 mg PO BID #14 capsule - Referrals Referrals: Rock Streeter [Primary Care Provider] - - Patient Instructions Printed Discharge Instructions: DI for Constipation Additional Instructions: Please return if you have any new, worsening, or concerning symptoms. Please follow up with GI as scheduled for tomorrow. Please follow up with your primary care physician this week. - Post Discharge Activity
[2017-06-30 09:29] LABS: URINE APPEARANCE CLOUDY; URINE BILIRUBIN NEGATIVE (NEGATIVE); URINE BLOOD 1+ (NEGATIVE); URINE COLOR YELLOW; URINE GLUCOSE (UA) NEGATIVE (NEGATIVE); URINE KETONE NEGATIVE (NEGATIVE); URINE NITRITE NEGATIVE (NEGATIVE)
[2017-06-30 09:31] LABS: INR 1.25 (0.82-1.09); PROTHROMBIN TIME (PATIENT) 14.1 SEC (9.98-11.88)
[2017-06-30 09:38] LABS: URINE LEUK ESTERASE 2+ (NEGATIVE); URINE PROTEIN 2+ (NEGATIVE)
[2017-06-30 09:40] LABS: EPI CELLS MANY /HPF (FEW); URINE BACTERIA RARE /hpf (NONE SEEN); URINE MUCUS RARE
[2017-06-30 10:09] LABS: ALBUMIN 3.3 g/dl (3.4-5.0); ALK PHOS 172 U/L (45-117); ANION GAP 7 (8-16); BILIRUBIN,TOTAL 0.5 mg/dL (0.2-1.0); BLOOD UREA NITROGEN 35 mg/dL (7-18); CALCIUM 8.1 mg/dL (8.5-10.1); CHLORIDE 103 mmol/L (98-107); CO2 29 mmol/L (21-32); CREATININE 3.2 mg/dL (0.55-1.02); GLUCOSE,RANDOM 88 mg/dL (74-106); LIPASE 154 U/L (73-393); POTASSIUM 4.2 mmol/L (3.5-5.1); SGOT/AST 12 U/L (15-37); SGPT/ALT 20 U/L (12-78); SODIUM 139 mmol/L (136-145); TOT PROT 6.6 g/dl (6.4-8.2)
[2017-06-30] MEDS ORDERED: ACETAMINOPHEN 325 MG TABLET (FP) PO ONE (10:33)
[2017-06-30] MEDS ORDERED: ACETAMINOPHEN 325 MG TABLET (FP) ONE (11:08)
--- NOTE | 2017-07-01 11:33 | EKG ---
Test Reason : Blood Pressure : / mmHG Vent. Rate : 077 BPM Atrial Rate : 077 BPM P-R Int : 168 ms QRS Dur : 088 ms QT Int : 470 ms P-R-T Axes : 016 -11 074 degrees QTc Int : 531 ms NORMAL SINUS RHYTHM POSSIBLE ANTERIOR INFARCT (CITED ON OR BEFORE 30-JUN-2017) ABNORMAL ECG WHEN COMPARED WITH ECG OF 17-AUG-2016 07:51, NONSPECIFIC T WAVE ABNORMALITY NOW EVIDENT IN LATERAL LEADS QT HAS LENGTHENED Confirmed by SANGEETHA PLASCENCIA MD ([id number]) on 07/01/2017 11:32:48 AM Referred By: Confirmed By:SANGEETHA PLASCENCIA MD
== END 2017-06-30 13:03 | disposition home or self-care (01) ==
LOC: JER 08:08
PROC: 3E033GC Introduction of Other Therapeutic Substance into Peripheral Vein, Percutaneous Approach (ICD-10-PCS; principal; 2017-06-30)
PROC: 3E033GC Introduction of Other Therapeutic Substance into Peripheral Vein, Percutaneous Approach (ICD-10-PCS; 2017-06-30)
PROC: 3E033GC Introduction of Other Therapeutic Substance into Peripheral Vein, Percutaneous Approach (ICD-10-PCS; 2017-06-30)
DX: K59.00 Constipation, unspecified (principal); I12.0 Hypertensive chronic kidney disease with stage 5 chronic kidney disease or end stage renal disease; N18.6 End stage renal disease; N17.8 Other acute kidney failure; Z99.2 Dependence on renal dialysis
CPT/HCPCS: 36415; 70450-TC; 74018-TC; 80053; 81003; 81015; 82272; 82550; 83690; 84484; 85025; 85610; 93005; 93010; 96365; 96375; 99284-25

== ENCOUNTER 2017-08-13 01:41 | Emergency (ER) | payer OTHER ==
[2017-08-13 01:51] VITALS: BP 157/53; PULSE 99; TEMP 98.4; BMI 21.1
--- NOTE | 2017-08-13 02:15 | PDOC ---
History of Present Illness - General Chief Complaint: Pain, Acute Stated Complaint: CONSTIPATION Time Seen by Provider: 08/13/17 01:51 History Source: Patient Exam Limitations: No Limitations - History of Present Illness Initial Comments: 08/13/17 02:37 Patient is 86F with history of ESRD on [facility] dialysis, HTN, GERD and chronic abdominal pain/constipation here today complaining of abdominal pain with 2-3 days since her last bowel movement. She states that she is taking miralax as directed by her GI Dr Hidalgo and normally has bowel movements every day. She endorses nausea. Denies fevers, chills, vomiting. States that she is passing large amounts of gas and eating appropriate. She complains of pain in her epigastrium and rectum. Past History - Past Medical History Allergies/Adverse Reactions: Allergies Allergy/AdvReac Type Severity Reaction Status Date / Time No Known Drug Allergies Allergy Verified 08/13/17 01:48 SEASONAL ALLERGIES Allergy Intermediate Uncoded 08/13/17 01:48 Home Medications: Ambulatory Orders Furosemide [Lasix -] 80 mg PO DAILY 03/03/15 Apixaban [Eliquis] 2.5 mg PO BID 30 Days 06/22/15 Cinacalcet HCl [Sensipar -] 30 mg PO DAILY tab 12/12/16 Hydrocortisone Acetate [Anusol Hc Suppository -] 25 mg [place] BID supp.rect Polyethylene Glycol 3350 [Miralax 119 gm Btl -] 17 gm PO BID bottle 12/12/16 Simethicone [Mylicon -] 80 mg PO Q6HPO PRN #0 tab.chew 12/12/16 Amlodipine Besylate [Norvasc -] 2.5 mg PO DAILY 08/13/17 Docusate Sodium [Colace] 100 mg PO Q8H 08/13/17 Sodium Bicarbonate - 650 mg PO DAILY 08/13/17 Anemia: No Asthma: No Cancer: No Cardiac Disorders: No CVA: No COPD: No CHF: No DVT: No Dementia: No Diabetes: No Dialysis: Yes () GI Disorders: Yes (GERD) Disorders: No HTN: Yes Hypercholesterolemia: No Liver Disease: No Seizures: No Thyroid Disease: Yes - Surgical History Abdominal Surgery: No Appendectomy: No Cardiac Surgery: No Cholecystectomy: No Lung Surgery: No Neurologic Surgery: No Orthopedic Surgery: No - Immunization History Immunization Up to Date: Yes - Suicide/Smoking/Psychosocial Hx Smoking Status: No Smoking History: Former smoker Have you smoked in the past 12 months: No Number of Cigarettes Smoked Daily: 0 If you are a former smoker, when did you quit?: 40 YRS Information on smoking cessation initiated: No Hx Alcohol Use: No Drug/Substance Use Hx: No Substance Use Type: None Hx Substance Use Treatment: No Review of Systems - Review of Systems Comments:: 08/13/17 02:44 GENERAL/CONSTITUTIONAL: No fever or chills. No weakness. HEAD, EYES, EARS, NOSE AND THROAT: No change in vision. No sore throat. CARDIOVASCULAR: No chest pain or shortness of breath RESPIRATORY: No cough, wheezing, or hemoptysis. GASTROINTESTINAL: Positive for nausea. Negative for vomiting, diarrhea or constipation. GENITOURINARY: No dysuria, frequency, or change in urination. MUSCULOSKELETAL: Positive for right shoulder pain. No neck/back pain. SKIN: No rash NEUROLOGIC: Positive for headache. Negative for vertigo, loss of consciousness, or change in strength/sensation. ENDOCRINE: No increased thirst. No abnormal weight change ALLERGIC/IMMUNOLOGIC: No hives or skin allergy. *Physical Exam - Vital Signs Last Vital Signs Temp Pulse Resp BP Pulse Ox 98.4 F 99 H 22 157/53 94 L 08/13/17 01:50 08/13/17 01:50 08/13/17 01:50 08/13/17 01:50 08/13/17 01:50 - Physical Exam Comments: 08/13/17 02:45 GENERAL: Awake, alert, and fully oriented, in no acute distress HEAD: No signs of trauma, normocephalic, atraumatic EYES: PERRLA, EOMI, sclera anicteric, conjunctiva clear ENT: Auricles normal inspection, hearing grossly normal, nares patent, oropharynx clear without exudates. Moist mucosa NECK: Normal ROM, supple, no lymphadenopathy, JVD, or masses LUNGS: No distress, speaks full sentences, clear to auscultation bilaterally HEART: Regular rate and rhythm, normal S1 and S2, no murmurs, rubs or gallops, peripheral pulses normal and equal bilaterally. ABDOMEN: Soft, nontender, normoactive bowel sounds. No guarding, no rebound. No masses EXTREMITIES: Normal inspection, Normal range of motion, no edema. No clubbing or cyanosis. R fistula with thrill NEUROLOGICAL: Cranial nerves II through XII grossly intact. Normal speech, no focal sensorimotor deficits SKIN: Warm, Dry, normal turgor, no rashes or lesions noted. RECTAL: Mildly tender, no marylou blood, small hemorrhoid at 12 oclock, no masses appreciated. ED Treatment Course - LABORATORY CBC & Chemistry Diagram: 08/13/17 03:17 08/13/17 03:17 Medical Decision Making - Medical Decision Making 08/13/17 02:46 86F with history of ESRD on hS dialysis, HTN, HLD, chronic abdominal pain/ constipation here today complaining of constipation with abdominal pain. Vital signs stable and normal. Patient passing gas during exam. Nontender during exam. Believe abd pain and constipation is benign, will evaluate with cbc, cmp, lactate, lipase and kub, will reassess. 08/13/17 04:15 Laboratory Tests 08/13/17 08/13/17 08/13/17 03:17 03:17 03:17 WBC 2.7 L Hgb 11.8 Hct 36.0 Plt Count 139 BUN 43 H Creatinine 3.7 H Creat Clearance w eGFR 11.59 Lactic Acid 1.1 Lipase 114 CBC shows white count of 2.7, ANC of 1634. Patient has no fever or suspected source of infection. Lactate negative. Lipase negative. CMP consistent with dialysis patient. Will give tylenol for shoulder pain and attempt fleet enema. 08/13/17 04:32 KUB shows moderate stool burden, non obstructive pattern, no evidence of free air but unable to visualize diaphragm. 08/13/17 05:13 Patient had small bowel movement. Viscous lidocaine placed in rectum to attempt to alleviate pain. Will give miralax. 08/13/17 05:17 Nontender abdomen on re-examination. 08/13/17 06:03 Nontender abdomen on re-examination, patient called home for ride home. Given return precautions and instructions to follow up. *DC/Admit/Observation/Transfer Diagnosis at time of Disposition: Constipation - Discharge Dispostion Disposition: HOME Condition at time of disposition: Good Admit: No - Referrals Referrals: Rock Streeter [Primary Care Provider] - - Patient Instructions Printed Discharge Instructions: DI for Constipation Additional Instructions: Please return if you have any new, worsening or concerning symptoms. If you do not have a bowel movement by tomorrow, please take magnesium citrate as directed on the bottle. It is available over the counter. Please follow up with your primary care physician and GI specialist regarding your constipation. - Post Discharge Activity
--- NOTE | 2017-08-13 03:23 | PDOC ---
Attending Attestation - HPI HPI: 08/13/17 03:24 The patient is an 86 year old female with a significant PMH of ESRD (on dialysis TThSa), HTN, and GERD who presents to the emergency department with constipation over the past 2 days. The patient also reports associated epigastric abdominal pain, rectal pain and nausea. She reports she has been passing gas but has been unable to pass a BM. She also reports reduced urinary output but denies dysuria. Allergies: NKDA PCP: Dr. Streeter - Physicial Exam PE: 08/13/17 03:24 Vitals: Triage Vital signs reviewed General Appearance: (+) Enlarged right breast. no acute distress, well nourished well developed Cardiac: Regular rate and rhythm, no murmurs, no rubs, no gallops, Lungs: Clear to auscultation bilateral, good air movement bilaterally, Abdomen: Soft, nondistended, normal bowel sounds, nontender to palpation Extremities: Full range of motion to all extremities, no cyanosis, clubbing, or edema Neuro: AOX3; Cranial Nerves 2-12 grossly intact, Strength intact to all extremities, Sensation intact to all extremities Psych: normal mood, normal affect <Stanton Juarez - Last Filed: 08/13/17 04:32> - Resident Resident Name: Edgar Abraham - ED Attending Attestation I have performed the following: I have examined & evaluated the patient, The case was reviewed & discussed with the resident, I agree w/resident's findings & plan, Exceptions are as noted - Medical Decision Making 08/13/17 06:09 86 years old past medical history significant for end-stage renal disease, hypertension, GERD presents emergency department with 2 day history of constipation. On examination no significant abdominal pain patient playing a rectal pain no acute findings on rectal examination We'll check labs treat with Tylenol enema observe and reassess Reevaluation patient with 2 small bowel movements still complaining of some rectal discomfort Reevaluation repeat abdominal examination no tenderness to palpation no rebound no guarding labs with no elevated white blood cell count there is no fever no elevated lactic acid Reevaluation pain somewhat improved with simethicone and viscous lidocaine per rectum At this point patient is stable for outpatient follow-up. She is scheduled for her dialysis today. She was instructed that if her symptoms do not improve she can try magnesium citrate at home she can follow-up with her physical chemist with this week or return to the emergency department for any severe worsening symptoms or for any concerns <Sergio Schumacher - Last Filed: 08/13/17 06:10>
[2017-08-13 03:26] LABS: BASO % 1.6 % (0-2.0); EOS % 0.7 % (0-4.5); HEMOGLOBIN 11.8 GM/dL (10.7-15.3); LYMPH % 22.5 % (8-40); MCH 28.1 pg (25.7-33.7); MCHC 32.9 g/dl (32.0-36.0); MEAN CELL VOLUME 85.6 fl (80-96); MEAN PLT VOLUME 8.4 fl (7.5-11.1); MONO % 14.7 % (3.8-10.2); NEUT % 60.5 % (42.8-82.8); PLATELET COUNT 139 K/MM3 (134-434); RDW 16.3 % (11.6-15.6); WHITE BLOOD COUNT 2.7 K/mm3 (4.0-10.0)
[2017-08-13] MEDS ORDERED: ACETAMINOPHEN 325 MG TABLET (FP) PO ONE (03:53)
[2017-08-13] MEDS ORDERED: ACETAMINOPHEN 325 MG TABLET (FP) ONE (03:54)
[2017-08-13 03:56] LABS: ALBUMIN 3.3 g/dl (3.4-5.0); ALK PHOS 150 U/L (45-117); ANION GAP 13 (8-16); BILIRUBIN,TOTAL 0.6 mg/dL (0.2-1.0); BLOOD UREA NITROGEN 43 mg/dL (7-18); CALCIUM 9.1 mg/dL (8.5-10.1); CHLORIDE 101 mmol/L (98-107); CO2 26 mmol/L (21-32); CREATININE 3.7 mg/dL (0.55-1.02); GLUCOSE,RANDOM 81 mg/dL (74-106); LIPASE 114 U/L (73-393); POTASSIUM 3.9 mmol/L (3.5-5.1); SGOT/AST 10 U/L (15-37); SGPT/ALT 14 U/L (12-78); SODIUM 140 mmol/L (136-145); TOT PROT 6.5 g/dl (6.4-8.2)
[2017-08-13] MEDS ORDERED: SODIUM PHOSPHATE/NA BIPHOS 133 ML ENEMA PR ONE (03:56)
[2017-08-13] MEDS ORDERED: LIDOCAINE HCL 2% JELLY 10 ML CARTRIDGE PR ONE (04:34)
[2017-08-13] MEDS ORDERED: SIMETHICONE 80 MG TAB.CHEW (FP) PO ONE (04:34)
[2017-08-13] MEDS ORDERED: POLYETHYLENE GLYCOL 3350 119 GM BTL PO ONE (04:49)
== END 2017-08-13 08:16 | disposition home or self-care (01) ==
LOC: JER 01:41 → SUPCPDRO 01:41 → JER 08:16
DX: K59.00 Constipation, unspecified (principal); I10 Essential (primary) hypertension; E07.9 Disorder of thyroid, unspecified; Z87.891 Personal history of nicotine dependence; K21.9 Gastro-esophageal reflux disease without esophagitis; Z99.2 Dependence on renal dialysis
CPT/HCPCS: 36415; 74018-TC-FY; 80053; 83605; 83690; 85025; 99281-25

== ENCOUNTER 2017-09-07 14:01 | Emergency (ER) | payer OTHER ==
--- NOTE | 2017-09-07 14:20 | PDOC ---
History of Present Illness - General Stated Complaint: ABDOMINAL PAIN Time Seen by Provider: 09/07/17 14:05 History Source: Patient, EMS, Family Exam Limitations: No Limitations - History of Present Illness Initial Comments: This is an 86 YOF well known to our emergency department with h/o ESRD (on HD T/ /, no missed dialysis recently, makes some urine at baseline), chronic constipation (has to use MiraLax and Colace regularly, which she has been doing this week), recurrent abdominal pain associated with constipation and diarrhea, hemorrhoids, HTN, and GERD who p/w diarrhea for the past 2-3 days and diffuse abdominal pain and rectal soreness onset in the past few hours while she was receiving HD. She was able to complete her normal HD without issue. She has had mild nausea this morning, and recent cough/congestion/runny nose, but otherwise denies any new symptoms. She took a Gas-Ex for her symptoms this morning. She denies having been on any antibiotics recently, eating any new or potentially rotten foods, or having any recent sick contacts. She had a flu vaccination this season and also has had a pneumococcal vaccination. She denies fever, chills, vomiting, headache, chest pain, SOB, rectal bleeding, dark/black stool, greasy stool, or other recent symptoms. She lives at home with her . Past History - Past Medical History Allergies/Adverse Reactions: Allergies Allergy/AdvReac Type Severity Reaction Status Date / Time No Known Drug Allergies Allergy Verified 09/07/17 14:17 SEASONAL ALLERGIES Allergy Intermediate Uncoded 09/07/17 14:17 Home Medications: Ambulatory Orders Furosemide [Lasix -] 80 mg PO DAILY 03/03/15 Apixaban [Eliquis] 2.5 mg PO BID 30 Days 06/22/15 Cinacalcet HCl [Sensipar -] 30 mg PO DAILY tab 12/12/16 Hydrocortisone Acetate [Anusol Hc Suppository -] 25 mg [place] BID supp.rect Polyethylene Glycol 3350 [Miralax 119 gm Btl -] 17 gm PO BID bottle 12/12/16 Simethicone [Mylicon -] 80 mg PO Q6HPO PRN #0 tab.chew 12/12/16 Amlodipine Besylate [Norvasc -] 2.5 mg PO DAILY 08/13/17 Docusate Sodium [Colace] 100 mg PO Q8H 08/13/17 Sodium Bicarbonate - 650 mg PO DAILY 08/13/17 Hydrocortisone 2.5% Topical Cr [Anusol 2.5% Hc Cream -] 1 applic RC DAILY #1 tube 09/07/17 Nitrofurantoin Monohyd/M-Cryst [Macrobid -] 100 mg PO BID #10 capsule 09/07/17 Anemia: No Asthma: No Cancer: No Cardiac Disorders: No CVA: No COPD: No CHF: No DVT: No Dementia: No Diabetes: No Dialysis: Yes (- -SAT) GI Disorders: Yes (GERD) Disorders: No HTN: Yes Hypercholesterolemia: No Liver Disease: No Seizures: No Thyroid Disease: Yes - Surgical History Abdominal Surgery: No Appendectomy: No Cardiac Surgery: No Cholecystectomy: No Lung Surgery: No Neurologic Surgery: No Orthopedic Surgery: No - Immunization History Immunization Up to Date: Yes - Suicide/Smoking/Psychosocial Hx Smoking Status: No Smoking History: Former smoker Have you smoked in the past 12 months: No Number of Cigarettes Smoked Daily: 0 If you are a former smoker, when did you quit?: 40 YRS Hx Alcohol Use: No Drug/Substance Use Hx: No Substance Use Type: None Hx Substance Use Treatment: No Review of Systems - Review of Systems Able to Perform ROS?: Yes Constitutional: No: Chills, Fever, Unexplained wgt Loss HEENTM: Yes: Nose Congestion, Throat Pain Respiratory: Yes: Cough. No: Shortness of Breath Cardiac (ROS): No: Chest Pain, Palpitations ABD/GI: Yes: Constipated, Diarrhea, Nausea (mild), Other (rectal pain, mild diffuse abdominal pain). No: Vomiting : No: Burning, Dysuria Musculoskeletal: No: Back Pain, Neck Pain Integumentary: No: Bruising, Rash Neurological: No: Headache, Numbness, Tingling, Weakness, Dizziness Endocrine: No: Unexplained Weight Gain, Unexplained Weight Loss *Physical Exam - Physical Exam General Appearance: Yes: Nourished, Appropriately Dressed, Mild Distress, Thin, Other (slightly anxious appearing, elderly female otherwise in no disress, answering questions appropriately) HEENT: positive: EOMI, Normal Voice, Hearing Grossly Normal, Other (arcus senilus). negative: Scleral Icterus (R), Scleral Icterus (L), Nasal Congestion Neck: positive: Trachea midline, Supple. negative: Tender, Rigid, Tender midline Respiratory/Chest: positive: Lungs Clear, Normal Breath Sounds. negative: Respiratory Distress, Crackles, Rhonchi, Stridor, Wheezing Cardiovascular: positive: Regular Rhythm, Regular Rate, Edema (trace pitting edema BLE), Murmur (2/6 systolic ejection murmur), Other Gastrointestinal/Abdominal: positive: Normal Bowel Sounds, Soft. negative: Tender, Organomegaly, Pulsatile Mass, Guarding Musculoskeletal: positive: Normal Inspection. negative: Decreased Range of Motion, Vertebral Tenderness Extremity: positive: Normal Capillary Refill, Normal Inspection, Normal Range of Motion. negative: Tender, Cyanosis Integumentary: positive: Normal Color, Dry, Warm. 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 VS notable for: 93% on RA, HR 94, otherwise VS wnl Exam notable for: Minimal suprapubic ttp, small external hemorrhoid, small amount of loose brown stool in rectal vault. DDX IBNLT bleeding hemorrhoids (internal versus external), ruptured diverticulum W/U ordered: CBCD CMP UA UCx FOBT TX ordered: [facility] Labs notable for: UTI Repeat VS: On reassessment: Patient in no distress, asking for food, repeat abdominal exam benign. The patient is appropriate for discharge home w/ close outpatient f/u. The patient and daughter are comfortable with this plan. They will follow up with their regular doctor in the next 1-3 days. Return precautions are discussed. *DC/Admit/Observation/Transfer Diagnosis at time of Disposition: Urinary (tract) obstruction, Proctalgia fugax Diarrhea Qualifiers: Diarrhea type: unspecified type Qualified Code(s): R19.7 - Diarrhea, unspecified Constipation Qualifiers: Constipation type: unspecified constipation type Qualified Code(s): K59.00 - Constipation, unspecified - Discharge Dispostion Disposition: HOME Condition at time of disposition: Stable Admit: No - Prescriptions Prescriptions: Hydrocortisone 2.5% Topical Cr [Anusol 2.5% Hc Cream -] 1 applic RC DAILY #1 tube Nitrofurantoin Monohyd/M-Cryst [Macrobid -] 100 mg PO BID #10 capsule - Referrals Referrals: Rock Streeter [Primary Care Provider] - - Patient Instructions Additional Instructions: You were seen in the ER for a rectal pain and diarrhea. We did laboratory tests on your urine and found a bladder infection. We gave you an IV antibiotic here, and are also sending a prescription for antibiotics to your pharmacy. After our assessment, we do not believe you are having a medical emergency at this time, and we believe you are safe to go home. Please skip your MiraLax for one dose if you are having too much diarrhea. 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 Please follow up with your regular doctor in 1-3 days. You can return to the ER at any time for any new or worsening symptoms like worsening pain unrelieved with medications, fever, inability to urinate, burning on urination, or other symptoms. - Post Discharge Activity
[2017-09-07 14:24] VITALS: BMI 17.5
[2017-09-07 15:14] LABS: BASO % 0.8 % (0-2.0); EOS % 0.1 % (0-4.5); HEMATOCRIT 38.6 % (32.4-45.2); HEMOGLOBIN 12.7 GM/dL (10.7-15.3); LYMPH % 15.1 % (8-40); MCH 27.9 pg (25.7-33.7); MCHC 32.8 g/dl (32.0-36.0); MEAN CELL VOLUME 85.1 fl (80-96); MEAN PLT VOLUME 8.3 fl (7.5-11.1); MONO % 6.8 % (3.8-10.2); NEUT % 77.2 % (42.8-82.8); PLATELET COUNT 125 K/MM3 (134-434); RBC 4.54 M/mm3 (3.60-5.2); RDW 16.7 % (11.6-15.6); WHITE BLOOD COUNT 5.4 K/mm3 (4.0-10.0)
--- NOTE | 2017-09-07 15:26 | PDOC ---
Attending Attestation - Resident Resident Name: Libia Simmons - ED Attending Attestation I have performed the following: I have examined & evaluated the patient, The case was reviewed & discussed with the resident, I agree w/resident's findings & plan, Exceptions are as noted - HPI HPI: 09/07/17 15:27 86y ERSD (Tu, th, sa), htn, gerd presenting with rectal pain. Pt states she has a hx of constipation and is on a bowel regiment, she has been having frequent episodes of non bloody diarrhea the past few days (last episode was yesterday) and has been having rectal pain the past day. She decided to come for evaluation after her dialysis today. She otherwise deneis any abd pain, fever/ chills, n/v, urinary sypmtoms, cp, sob, dizziness diaphoresis. GENERAL: The patient is awake, alert, and fully oriented, Nontoxic - in no acute distress. HEAD: Normocephalic, atraumatic. EYES: extraocular movements intact, sclera anicteric, conjunctiva clear. LUNGS: Breath sounds equal, clear to auscultation bilaterally. No wheezes, no rhonchi, no rales. HEART: +systolic murmer ABDOMEN: Soft, nontender, normoactive bowel sounds. No guarding, no rebound. . No CVA tenderness EXTREMITIES: +grafts in the LUE/RUE, Normal range of motion, no edema. NEUROLOGICAL: No facial assymetry, Normal speech, PSYCH: Normal mood, normal affect. SKIN: Warm, Dry, normal turgor, suspect rectal pain secondary to her frequent episodes of diarrhea no abd tenderness to suggest acute infective process will ck labs will reassses anticipate d/c with pmd fu Heart Score/ECG Review - ECG Impressions Comment:: 09/07/17 16:27 Twelve-lead EKG was performed and reviewed by me. There is normal sinus rhythm with a normal rate. Rate o f96 The axis is normal. T wave flattening in lateral leads
[2017-09-07 15:36] LABS: ALBUMIN 3.1 g/dl (3.4-5.0); ALK PHOS 139 U/L (45-117); ANION GAP 11 (8-16); BILIRUBIN,TOTAL 0.8 mg/dL (0.2-1.0); BLOOD UREA NITROGEN 22 mg/dL (7-18); CALCIUM 7.9 mg/dL (8.5-10.1); CHLORIDE 99 mmol/L (98-107); CO2 27 mmol/L (21-32); CREATININE 2.9 mg/dL (0.55-1.02); GLUCOSE,RANDOM 89 mg/dL (74-106); SGPT/ALT 26 U/L (12-78); SODIUM 137 mmol/L (136-145); TOT PROT 6.7 g/dl (6.4-8.2)
[2017-09-07 15:41] LABS: POTASSIUM 4.9 mmol/L (3.5-5.1); SGOT/AST 37 U/L (15-37)
[2017-09-07] MEDS ORDERED: ACETAMINOPHEN 1000 MG/100 ML VIAL (NON FORMULARY) IVPB ONE (16:21)
[2017-09-07] MEDS ORDERED: ACETAMINOPHEN INJECTION 100 ML IVPB ONE (16:50)
[2017-09-07 18:15] LABS: URINE APPEARANCE CLOUDY; URINE BILIRUBIN NEGATIVE (<2.0 mg/dL); URINE BLOOD 2+ (NEGATIVE); URINE COLOR AMBER; URINE GLUCOSE (UA) NEGATIVE (NEGATIVE); URINE KETONE NEGATIVE (NEGATIVE); URINE NITRITE NEGATIVE (NEGATIVE)
[2017-09-07 18:17] LABS: URINE LEUK ESTERASE 3+ (NEGATIVE); URINE PROTEIN 2+ (NEGATIVE)
[2017-09-07 18:19] LABS: EPI CELLS FEW /HPF (FEW); URINE BACTERIA MODERATE /hpf (NONE SEEN); URINE MUCUS RARE
[2017-09-07] MEDS ORDERED: CEFTRIAXONE 1 GM in DEXTROSE 5%-WATER - 50 ML IVPB ONE (19:40)
[2017-09-07] MEDS ORDERED: CEFTRIAXONE 1 GM/50 ML BAG ONE (20:00)
[2017-09-07 20:58] VITALS: BP 123/74; PULSE 64; TEMP 98.1
--- NOTE | 2017-09-08 21:36 | EKG ---
Test Reason : Blood Pressure : / mmHG Vent. Rate : 096 BPM Atrial Rate : 096 BPM P-R Int : 186 ms QRS Dur : 092 ms QT Int : 346 ms P-R-T Axes : 045 000 077 degrees QTc Int : 437 ms NORMAL SINUS RHYTHM CANNOT RULE OUT ANTERIOR INFARCT (CITED ON OR BEFORE 30-JUN-2017) ABNORMAL ECG WHEN COMPARED WITH ECG OF 30-JUN-2017 09:03, QT HAS SHORTENED Confirmed by SANGEETHA PLASCENCIA MD ([id number]) on 09/08/2017 9:35:57 PM Referred By: Confirmed By:SANGEETHA PLASCENCIA MD
--- NOTE | 2017-09-10 07:22 | PDOC ---
Patient Follow-up (Call Back) - Post ED Follow - Up Condition at time of discharge: Stable Disposition at time of original discharge: HOME Reason for Call Back: Abnwl. Microbiology (Pt with Lactose fermenting - bacilli seen w/ preliminary report. Pt on Macrobid. Will await final report)
--- NOTE | 2017-09-11 09:47 | PDOC ---
Patient Follow-up (Call Back) - Post ED Follow - Up Condition at time of discharge: Stable Disposition at time of original discharge: HOME Reason for Call Back: Abnwl. Microbiology (Pt. with UTI, on macrobid. Klebsiella isolated and macrobid sensitive. No further treatment needed at this time.)
== END 2017-09-07 21:10 | disposition home or self-care (01) ==
LOC: JER 14:01
PROC: 3E03329 Introduction of Other Anti-infective into Peripheral Vein, Percutaneous Approach (ICD-10-PCS; principal; 2017-09-07)
PROC: 3E033NZ Introduction of Analgesics, Hypnotics, Sedatives into Peripheral Vein, Percutaneous Approach (ICD-10-PCS; 2017-09-07)
DX: N39.0 Urinary tract infection, site not specified (principal); K59.4 Anal spasm; K31.9 Disease of stomach and duodenum, unspecified; K64.4 Residual hemorrhoidal skin tags; R19.7 Diarrhea, unspecified; I12.0 Hypertensive chronic kidney disease with stage 5 chronic kidney disease or end stage renal disease; N18.6 End stage renal disease; N17.8 Other acute kidney failure; Z99.2 Dependence on renal dialysis; K21.9 Gastro-esophageal reflux disease without esophagitis; E07.9 Disorder of thyroid, unspecified; K59.09 Other constipation
CPT/HCPCS: 36415; 71045-TC-FY; 80053; 81003; 81015; 82272; 83605; 85025; 87086; 87186; 93005; 93010; 96365; 96375; 99282-25; J0131

== ENCOUNTER 2017-09-10 14:10 | Emergency (ER) | payer OTHER ==
[2017-09-10 14:24] VITALS: BMI 18.6
--- NOTE | 2017-09-10 18:03 | PDOC ---
History of Present Illness <Mari Hernández - Last Filed: 09/10/17 22:18> - General History Source: Patient, Significant Other Exam Limitations: No Limitations - History of Present Illness Initial Comments: 09/10/17 18:46 The patient is a 86 year old female, with a significant past medical history of hypertension, ESRD on dialysis (, , Sat) GERD, who presents to the emergency department complaining of, diarrhea and intermittent constipation for 2 days. The patient states she has been taking Miralax for the constipation with mild relief but states has also been having persistent diarrhea (denies melena or hematochezia) for the past two days. The patient states she was recently seen at [facility] on 09/07/17 and diagnosed with a UTI for which she has been taking Macrobid antibiotics as prescribed. The patient also states she missed her dialysis treatment today secondary to not feeling well. She denies recent fevers, chills, headache or dizziness. She denies recent nausea, or vomit. She denies recent dysuria, frequency, urgency or hematuria. She denies recent chest pain or shortness of breath. Allergies: NKA PCP: Dr. Streeter Nephrology: Dr. Celeste Serrano GI: Dr. Hidalgo <Rudy Castro - Last Filed: 09/10/17 22:21> - General Chief Complaint: Diarrhea Stated Complaint: DIARRHEA Time Seen by Provider: 09/10/17 16:33 Past History - Past Medical History Anemia: No Asthma: No Cancer: No Cardiac Disorders: No CVA: No COPD: No CHF: No DVT: No Dementia: No Diabetes: No Dialysis: Yes (- -SAT) GI Disorders: Yes (GERD) Disorders: No HTN: Yes Hypercholesterolemia: No Liver Disease: No Seizures: No Thyroid Disease: Yes - Surgical History Abdominal Surgery: No Appendectomy: No Cardiac Surgery: No Cholecystectomy: No Lung Surgery: No Neurologic Surgery: No Orthopedic Surgery: No - Immunization History Immunization Up to Date: Yes - Suicide/Smoking/Psychosocial Hx Smoking Status: No Smoking History: Former smoker Have you smoked in the past 12 months: No Number of Cigarettes Smoked Daily: 0 If you are a former smoker, when did you quit?: 40 YRS Information on smoking cessation initiated: No Hx Alcohol Use: No Drug/Substance Use Hx: No Substance Use Type: None Hx Substance Use Treatment: No <EdgarStewga Blankenship - Last Filed: 09/10/17 22:18> <Rudy Castro - Last Filed: 09/10/17 22:21> - Past Medical History Allergies/Adverse Reactions: Allergies Allergy/AdvReac Type Severity Reaction Status Date / Time No Known Drug Allergies Allergy Verified 09/10/17 14:21 SEASONAL ALLERGIES Allergy Intermediate Uncoded 09/10/17 14:21 Home Medications: Ambulatory Orders Furosemide [Lasix -] 80 mg PO DAILY 03/03/15 Apixaban [Eliquis] 2.5 mg PO BID 30 Days 06/22/15 Cinacalcet HCl [Sensipar -] 30 mg PO DAILY tab 12/12/16 Hydrocortisone Acetate [Anusol Hc Suppository -] 25 mg [place] BID supp.rect Polyethylene Glycol 3350 [Miralax 119 gm Btl -] 17 gm PO BID bottle 12/12/16 Simethicone [Mylicon -] 80 mg PO Q6HPO PRN #0 tab.chew 12/12/16 Amlodipine Besylate [Norvasc -] 2.5 mg PO DAILY 08/13/17 Docusate Sodium [Colace] 100 mg PO Q8H 08/13/17 Sodium Bicarbonate - 650 mg PO DAILY 08/13/17 Hydrocortisone 2.5% Topical Cr [Anusol 2.5% Hc Cream -] 1 applic RC DAILY #1 tube 09/07/17 Nitrofurantoin Monohyd/M-Cryst [Macrobid -] 100 mg PO BID #10 capsule 09/07/17 Ciprofloxacin [Cipro (Restricted To Id)] 500 mg PO Q12H #14 tablet 09/10/17 Review of Systems - Review of Systems Comments:: 09/10/17 18:47 CONSTITUTIONAL: Absent: fever, no chills, no fatigue EYES: Absent: visual changes ENT: Absent: ear pain, no sore throat CARDIOVASCULAR: Absent: chest pain, no palpitations RESPIRATORY: Absent: cough, no SOB GI: Present: +Constipation. +Diarrhea. Absent: abdominal pain, no nausea, no vomiting GENITOURINARY: Absent: dysuria, no frequency, no hematuria MUSKULOSKELETAL: Absent: back pain, no arthralgia, no myalgia SKIN: Absent: rash NEURO: Absent: headache <Rudy Castro - Last Filed: 09/10/17 22:21> *Physical Exam - Vital Signs Last Vital Signs Temp Pulse Resp BP Pulse Ox 98 F 105 H 18 135/53 97 09/10/17 14:21 09/10/17 14:21 09/10/17 14:21 09/10/17 14:21 09/10/17 14:21 <Mari Hernández - Last Filed: 09/10/17 22:18> - Vital Signs Last Vital Signs Temp Pulse Resp BP Pulse Ox 98 F 105 H 18 135/53 97 09/10/17 14:21 09/10/17 14:21 09/10/17 14:21 09/10/17 14:21 09/10/17 14:21 - Physical Exam Comments: 09/10/17 18:47 GENERAL: Well developed, well nourished. Awake and alert. No acute distress. HEENT: Normocephalic, atraumatic. PERRLA, EOMI. No conjunctival pallor. Sclera are non- icteric. Moist mucous membranes. Oropharynx is clear. NECK: Supple. Full ROM. No JVD. Carotid pulses 2+ and symmetric, without bruits. No thyromegaly. No lymphadenopathy. CARDIOVASCULAR: Regular rate and rhythm. No murmurs, rubs, or gallops. Distal pulses are 2+ and symmetric. PULMONARY: No evidence of respiratory distress. Lungs clear to auscultation bilaterally. No wheezing, rales or rhonchi. ABDOMINAL: Soft. Non-tender. Non-distended. No rebound or guarding. No organomegaly. Normoactive bowel sounds. MUSCULOSKELETAL Normal range of motion at all joints. No bony deformities or tenderness. No CVA tenderness. EXTREMITIES: +Right arm fistula, nice thrill. No cyanosis. No clubbing. No edema. No calf tenderness. SKIN: Warm and dry. Normal capillary refill. No rashes. No jaundice. NEUROLOGICAL: Alert, awake, appropriate. Cranial nerves 2-12 intact. No deficits to light touch and temperature in face, upper extremities and lower extremities. No motor deficits in the in face, upper extremities and lower extremities. Normoreflexic in the upper and lower extremities. Normal speech. Toes are down- going bilaterally. PSYCHIATRIC: Cooperative. Good eye contact. Appropriate mood and affect. <Rudy Castro - Last Filed: 09/10/17 22:21> ED Treatment Course - LABORATORY CBC & Chemistry Diagram: 09/10/17 19:20 09/10/17 19:20 <Mari Hernández - Last Filed: 09/10/17 22:18> - LABORATORY CBC & Chemistry Diagram: 09/10/17 19:20 09/10/17 19:20 <Rudy Castro - Last Filed: 09/10/17 22:21> Medical Decision Making - Medical Decision Making 09/10/17 22:18 86-year-old female came in complaining that she had some diarrhea. She was seen on September 07 and was given Macrobid for UTI. She states that the Macrobid is giving her diarrhea She has no fever. She missed her dialysis today to come here. She doesn't want to continue taking her Macrobid because she feels is giving her loose stool I spoke with the taker off drying kiln covering for Dr. Celeste Priest, Dr. Lynn. ,he said that they will try to fit her in for her dialysis tomorrow. Message was conveyed to her I spoksedrick w Dr Lynn ,he recommended fluoroquinolone for the UTI <Mari Hernández - Last Filed: 09/10/17 22:18> - Medical Decision Making 09/10/17 22:[address] Celeste Priest at 9:57pm. Case discussed with covering physician Dr. Lynn. <Rudy Castro - Last Filed: 09/10/17 22:21> *DC/Admit/Observation/Transfer <Mari Hernández - Last Filed: 09/10/17 22:18> - Attestations Scribe Attestion: 09/10/17 18:48 Documentation prepared by Rudy Castro, acting as medical imaging technologist for Mari Hernández MD. <Rudy Castro - Last Filed: 09/10/17 22:21> Diagnosis at time of Disposition: ESRD (end stage renal disease) UTI (urinary tract infection) Qualifiers: Urinary tract infection type: site unspecified Hematuria presence: without hematuria Qualified Code(s): N39.0 - Urinary tract infection, site not specified - Discharge Dispostion Disposition: HOME Condition at time of disposition: Stable - Prescriptions Prescriptions: Ciprofloxacin [Cipro (Restricted To Id)] 500 mg PO Q12H #14 tablet - Referrals Referrals: Rock Streeter [Primary Care Provider] - - Patient Instructions Printed Discharge Instructions: DI for Urinary Tract Infection (UTI) - Post Discharge Activity
[2017-09-10 20:19] LABS: BASO % 0.7 % (0-2.0); EOS % 0.1 % (0-4.5); HEMATOCRIT 40.1 % (32.4-45.2); HEMOGLOBIN 13.2 GM/dL (10.7-15.3); MCH 28.1 pg (25.7-33.7); MCHC 32.8 g/dl (32.0-36.0); MEAN CELL VOLUME 85.7 fl (80-96); MEAN PLT VOLUME 8.7 fl (7.5-11.1); MONO % 9.7 % (3.8-10.2); NEUT % 75.5 % (42.8-82.8); PLATELET COUNT 181 K/MM3 (134-434); RBC 4.68 M/mm3 (3.60-5.2); RDW 16.8 % (11.6-15.6); WHITE BLOOD COUNT 7.3 K/mm3 (4.0-10.0)
[2017-09-10 20:59] LABS: ALBUMIN 3.1 g/dl (3.4-5.0); ALK PHOS 142 U/L (45-117); ANION GAP 8 (8-16); BILIRUBIN,TOTAL 0.6 mg/dL (0.2-1.0); BLOOD UREA NITROGEN 46 mg/dL (7-18); CHLORIDE 103 mmol/L (98-107); CO2 25 mmol/L (21-32); CREATININE 4.6 mg/dL (0.55-1.02); GLUCOSE,RANDOM 78 mg/dL (74-106); SGPT/ALT 14 U/L (12-78); SODIUM 136 mmol/L (136-145); TOT PROT 6.8 g/dl (6.4-8.2)
[2017-09-10 21:30] LABS: SGOT/AST 21 U/L (15-37)
[2017-09-10] MEDS ORDERED: CIPROFLOXACIN 500 MG TABLET (RESTRICTED TO ID) PO ONE (22:20)
[2017-09-10 22:23] VITALS: BP 143/65; PULSE 95; TEMP 98.1
--- NOTE | 2017-09-11 11:20 | EKG ---
Test Reason : Blood Pressure : / mmHG Vent. Rate : 099 BPM Atrial Rate : 099 BPM P-R Int : 198 ms QRS Dur : 092 ms QT Int : 392 ms P-R-T Axes : 038 -22 088 degrees QTc Int : 503 ms NORMAL SINUS RHYTHM INCOMPLETE RIGHT BUNDLE BRANCH BLOCK ANTERIOR INFARCT (CITED ON OR BEFORE 30-JUN-2017) ABNORMAL ECG WHEN COMPARED WITH ECG OF 07-SEP-2017 14:51, NONSPECIFIC T WAVE ABNORMALITY NO LONGER EVIDENT IN INFERIOR LEADS NONSPECIFIC T WAVE ABNORMALITY, IMPROVED IN ANTERIOR LEADS QT HAS LENGTHENED Confirmed by KARAN BARRAZA, JESS ([id number]) on 09/11/2017 11:20:21 AM Referred By: Confirmed By:JESS RUSSO MD
== END 2017-09-10 23:11 | disposition home or self-care (01) ==
LOC: JER 14:10
DX: N39.0 Urinary tract infection, site not specified (principal); I12.0 Hypertensive chronic kidney disease with stage 5 chronic kidney disease or end stage renal disease; N18.6 End stage renal disease; N17.8 Other acute kidney failure; Z99.2 Dependence on renal dialysis; Z87.891 Personal history of nicotine dependence
CPT/HCPCS: 36415; 80053; 85025; 93005; 93010; 99283-25

== ENCOUNTER 2017-09-27 10:12 | Day surgery (SDC) | payer OTHER ==
[2017-09-26 09:07] VITALS: BMI 20.1
[2017-09-27 15:18] VITALS: TEMP 97.9
[2017-09-27 18:27] VITALS: BP 117/68; PULSE 80
== END 2017-09-27 16:45 | disposition home or self-care (01) ==
LOC: JASU-SURG 10:12
PROVIDERS: ATTEND Surgery Vascular Surgery
PROC: 057Y3ZZ Dilation of Upper Vein, Percutaneous Approach (ICD-10-PCS; principal; 2017-09-27)
DX: T82.898A Other specified complication of vascular prosthetic devices, implants and grafts, initial encounter (principal); I12.0 Hypertensive chronic kidney disease with stage 5 chronic kidney disease or end stage renal disease; N18.6 End stage renal disease; Z99.2 Dependence on renal dialysis; Z87.891 Personal history of nicotine dependence
CPT/HCPCS: 36415; 76000-TC-FY; 84132; 94760; J1644

== ENCOUNTER 2017-10-03 14:52 | Observation (INO) | payer OTHER ==
--- NOTE | 2017-10-03 15:18 | PDOC ---
History of Present Illness - General Chief Complaint: Constipation Stated Complaint: ABD PAIN Time Seen by Provider: 10/03/17 15:17 - History of Present Illness Initial Comments: 10/03/17 16:56 The patient is an 87 year old female with a history of HTN, ESRD on dialysis T/ /Sat, constipation who presents for evaluation of constipation. The patient reports that she usually takes miralax for her constipation, but stopped taking the medication 2 days ago due to diarrhea. She states that since stopping her miralax, she has experienced worsening sensation of constipation and noted lots of gas at her dialysis today prompting her presentation to the ED for evaluation. She states that she is still passing flatus and otherwise denies fevers, chills, SOB, chest pain, nausea, vomiting, or changes with urination. 10/03/17 17:10 The patient's grandauter called and stated that they are not comfortable having the patient back at home and would like her evaluated for chcf placement due to claiming that the patient has been making statements that the patient's family is harming her. The patient herself denies making such statements, but would like to go to a chcf. Past History - Past Medical History Allergies/Adverse Reactions: Allergies Allergy/AdvReac Type Severity Reaction Status Date / Time No Known Drug Allergies Allergy Verified 09/10/17 14:21 SEASONAL ALLERGIES Allergy Intermediate Uncoded 09/10/17 14:21 Home Medications: Ambulatory Orders Furosemide [Lasix -] 80 mg PO DAILY 03/03/15 Apixaban [Eliquis] 2.5 mg PO BID 30 Days 06/22/15 Cinacalcet HCl [Sensipar -] 30 mg PO DAILY tab 12/12/16 Simethicone [Mylicon -] 80 mg PO Q6HPO PRN #0 tab.chew 12/12/16 Amlodipine Besylate [Norvasc -] 2.5 mg PO DAILY 08/13/17 Sodium Bicarbonate - 650 mg PO DAILY 08/13/17 Hydrocortisone 2.5% Topical Cr [Anusol-Hc -] 1 applic RC DAILY #1 tube 09/07/17 Polyethylene Glycol 3350 [Miralax 119 gm Btl -] 17 gm PO DAILY 09/26/17 Fluticasone Propionate [Flovent Diskus] 50 mcg IH DAILY 10/03/17 Montelukast Sodium [Singulair] 10 mg PO DAILY 10/03/17 Omeprazole 20 mg PO DAILY 10/03/17 Hydrocortisone 2.5% Topical Cr [Anusol-Hc -] 1 applic RC DAILY tube 10/04/17 Anemia: No Asthma: No Cancer: No Cardiac Disorders: No CVA: No COPD: No CHF: No DVT: No Dementia: No Diabetes: No Dialysis: Yes () GI Disorders: No Disorders: No HTN: Yes Hypercholesterolemia: No Liver Disease: No Seizures: No Thyroid Disease: Yes - Surgical History Abdominal Surgery: No Appendectomy: No Cardiac Surgery: No Cholecystectomy: No Lung Surgery: No Neurologic Surgery: No Orthopedic Surgery: No - Immunization History Immunization Up to Date: Yes - Suicide/Smoking/Psychosocial Hx Smoking Status: No Smoking History: Unknown if ever smoked Have you smoked in the past 12 months: No Number of Cigarettes Smoked Daily: 0 If you are a former smoker, when did you quit?: 40 YRS Information on smoking cessation initiated: No Hx Alcohol Use: No Drug/Substance Use Hx: No Substance Use Type: None Hx Substance Use Treatment: No Review of Systems - Review of Systems Comments:: 10/03/17 17:05 Constitutional: No fevers, chills, fatigue, malaise HEENT: No Rhinorrhea, nasal congestion, visual changes Cardiovascular: No chest pain, syncope, palpitations, lightheadedness Respiratory: No Cough, SOB, Hemoptysis, Gastrointestinal: Abdominal discomfort, Diarrhea, Constipation. No Nausea, Vomiting, Melena Genitourinary: No Dysuria, Frequency, Urgency, Hesitancy, Hematuria, Flank pain Musculoskeletal: No Myalgia, arthralgia Skin: No rashes, itching, bruising, pallor Neurologic: No Headache, Dizziness, Numbness, Weakness, or Tingling Psychiatric: No Hallucinations. No SI or HI *Physical Exam - Vital Signs Last Vital Signs Temp Pulse Resp BP Pulse Ox 98.5 F 77 16 140/74 96 10/03/17 14:59 10/03/17 14:59 10/03/17 14:59 10/03/17 14:59 10/03/17 14:59 - Physical Exam Comments: 10/03/17 17:06 General Appearance: Nourished. No Apparent Distress HEENT: EOMI, MI. No Pharyngeal Erythema, Tonsillar Exudate, Tonsillar Erythema Neck: No Cervical Lymphadenopathy Respiratory/Chest: Lungs Clear, Normal Breath Sounds. No Crackles, Rales, Rhonchi, Wheezing Cardiovascular: Regular Rhythm, Regular Rate. No Murmur, Gallops, Rubs Gastrointestinal/Abdominal: Normal Bowel Sounds, Soft. No Guarding, Rebound, Tenderness Musculoskeletal: No CVA Tenderness Extremity: Normal Capillary Refill Integumentary: Normal Color, Dry, Warm Neurologic: Fully Oriented, Alert, Normal Mood/Affect, Normal Response, ED Treatment Course - LABORATORY CBC & Chemistry Diagram: 10/03/17 16:45 10/03/17 16:45 Medical Decision Making - Medical Decision Making 10/03/17 17:14 The patient is an 87 year old female with a history of HTN, ESRD on dialysis T/ /Sat, constipation who presents for evaluation of constipation. Differential includes but is not limited to: Gastritis, pancreatitis, constipation, infectious, metabolic derangement. Given the patient's history, it is likely the patient's symptoms are due to constipation due to the patient stopping her miralax. We will obtain a cbc, cmp, lipase and plain films to evaluate further and continue to monitor and reassess here in the ED. 10/03/17 18:22 CBC, cmp, lipase are unremarkable. Abdominal plain films are unremarkable as read by our radiologist. Our director case discussed the case with the patient' s family who informed us that they have video recording of the patient stating that "she wanted to throw herself down the stairs and wants to be with god." The family states they have concern for the patient's safety. Given the patient 's reported suicidal ideation, the patient will require psychiatric evaluation. We discussed the case with Dr. Castelan who will come evaluate the patient. We will continue to observe the patient in the meantime. *DC/Admit/Observation/Transfer Diagnosis at time of Disposition: Suicidal ideation Constipation Qualifiers: Constipation type: unspecified constipation type Qualified Code(s): K59.00 - Constipation, unspecified - Discharge Dispostion Disposition: HOME Condition at time of disposition: Good - Referrals - Patient Instructions - Post Discharge Activity
--- NOTE | 2017-10-03 16:11 | PDOC ---
Attending Attestation - HPI HPI: 10/03/17 17:27 The patient is a 87 year old female with significant past medical history of HTN , ESRD (on dialysis ) presents to the emergency department complaining of constipation. The patient states she was at dialysis prior to coming to the ED. The patient reports she was stopped taking MiraLAX 2 days ago secondary to the manifestation of diarrhea. The patient states her last bowel movement movement was 2 days ago. The patient state she is constipated but is able to pass gas and states a lot of gas in the belly. The patient states she had an appointment with Dr. Ma 6 days ago to get a stitch out. The patient states she has swelling to her right breast. Allergies: Seasonal allergies Social History: None reported - Physicial Exam PE: 10/03/17 17:12 GENERAL: Awake, alert, and fully oriented, in no acute distress HEAD: No signs of trauma EYES: PERRLA, EOMI, sclera anicteric, conjunctiva clear ENT: Auricles normal inspection, hearing grossly normal, nares patent, oropharynx clear without exudates. Moist mucosa NECK: Normal ROM, supple, no lymphadenopathy, JVD, or masses LUNGS: Breath sounds equal, clear to auscultation bilaterally. No wheezes, and no crackles HEART: Regular rate and rhythm, normal S1 and S2, no murmurs, rubs or gallops ABDOMEN: Soft, nontender, normoactive bowel sounds. No guarding, no rebound. No masses EXTREMITIES: (+) Fistula in the right upper extremity. Normal range of motion, no edema. No clubbing or cyanosis. No cords, erythema, or tenderness NEUROLOGICAL: Cranial nerves II through XII grossly intact. Normal speech. SKIN: Warm, Dry, normal turgor, no rashes or lesions noted. - Medical Decision Making 10/03/17 17:28 Documentation prepared by Angela Powell, acting as medical specialist for Lori Madsen DO. <Angela Powell - Last Filed: 10/03/17 17:27> - Resident Resident Name: Maria Del CarmenArtem - ED Attending Attestation I have performed the following: I have examined & evaluated the patient, The case was reviewed & discussed with the resident, I agree w/resident's findings & plan, Exceptions are as noted - Medical Decision Making 10/03/17 16:11 I, Dr. Lori Madsen, DO, attest that this document has been prepared under my direction and personally reviewed by me in its entirety. I further attest, that it accurately reflects all work, treatment, procedures and medical decision -making performed by me. 10/03/17 17:05 a/p: 87yo female with constipation and no bm x 2 days -stopped miralax because she developed diarrhea 2 days ago, now she hasn't had a bm since 2 days +passing flatus -no f/c -nontoxic in appearance -had full HD today -will monitor and reassess -labs, abd xray to r/o obstruction vs obstipation vs constipation 10/03/17 17:06 family called resident stating the patient was making threats against them and they don't feel comfortable in the house. per the patient she has not made threats, but instead she feels she would be better in a NH 10/03/17 19:14 pts family does not feel comfortable taking the patient home discussed case with George from case management - will speak with the family per george - family states patient has been making suicidal threats at home. states they have video/tape recordings of the patient stating she "wants to throw herself down the stairs to be with god" will place on 1:1, will discuss with psychiatry -will place in obs overnight pending psych eval in the AM 10/03/17 19:[address] Parada who accepts pt to service. <Lori Madsen - Last Filed: 10/03/17 19:38>
[2017-10-03 16:54] LABS: BASO % 1.3 % (0-2.0); EOS % 0.6 % (0-4.5); HEMATOCRIT 34.6 % (32.4-45.2); HEMOGLOBIN 11.6 GM/dL (10.7-15.3); LYMPH % 21.7 % (8-40); MCH 28.5 pg (25.7-33.7); MCHC 33.6 g/dl (32.0-36.0); MEAN CELL VOLUME 84.9 fl (80-96); MEAN PLT VOLUME 8.1 fl (7.5-11.1); MONO % 10.7 % (3.8-10.2); NEUT % 65.7 % (42.8-82.8); PLATELET COUNT 156 K/MM3 (134-434); RBC 4.08 M/mm3 (3.60-5.2); RDW 16.5 % (11.6-15.6); WHITE BLOOD COUNT 4.2 K/mm3 (4.0-10.0)
[2017-10-03 17:35] LABS: ALBUMIN 3.2 g/dl (3.4-5.0); ANION GAP 10 (8-16); BLOOD UREA NITROGEN 19 mg/dL (7-18); CHLORIDE 101 mmol/L (98-107); CO2 27 mmol/L (21-32); CREATININE 2.2 mg/dL (0.55-1.02); GLUCOSE,RANDOM 69 mg/dL (74-106); LIPASE 124 U/L (73-393); POTASSIUM 3.6 mmol/L (3.5-5.1); SGOT/AST 17 U/L (15-37); SGPT/ALT 16 U/L (12-78); SODIUM 138 mmol/L (136-145)
[2017-10-03 17:36] LABS: ALK PHOS 171 U/L (45-117); BILIRUBIN,TOTAL 0.7 mg/dL (0.2-1.0); TOT PROT 6.9 g/dl (6.4-8.2)
[2017-10-03] MEDS: SIMETHICONE 80 MG TAB.CHEW (FP) PO ONE ×2 (17:42→18:01)
[2017-10-03] MEDS ORDERED: POLYETHYLENE GLYCOL 3350 119 GM BTL PO SCH (21:30)
--- NOTE | 2017-10-03 21:39 | HP ---
Admitting History and Physical - Admission History of Present Illness: The patient is a 87 year old female with significant past medical history of HTN , ESRD (on dialysis //SAT), chronic constipation, ( followed by GI ) presents to the emergency department complaining of constipation. The patient states she was at dialysis prior to coming to the ED. The patient reports she was stopped taking MiraLAX 2 days ago secondary to the manifestation of diarrhea. The patient states her last bowel movement was 2 days ago. The patient state she is constipated but is able to pass gas and states a lot of gas in the belly. The patient states she had an appointment with Dr. Ma 6 days ago to get a stitch out. The patient states she has swelling to her right breast. Family report patient with suicidal ideation / no overt action / family report "plans to throw herself down the stairs ", wants to "ended all " --- Psychiatry called --will evaluate patient in am. Plans to admit for observation / safety. Allergies: Seasonal allergies Social History: None reported History Source: Patient, Family Member, Medical Record Limitations to Obtaining History: No Limitations - Past Medical History Cardiovascular: Yes: HTN Gastrointestinal: Yes: Constipation, GERD Renal/: Yes: Renal Failure, Hemodialysis Heme/Onc: Yes: Anemia ENT: Yes: Allergic Rhinitis - Past Surgical History Past Surgical History: Yes: AV Fistula/Graft - Smoking History Smoking history: Unknown if ever smoked Have you smoked in the past 12 months: No Aproximately how many cigarettes per day: 0 If you are a former smoker, when did you quit?: 40 YRS - Alcohol/Substance Use Hx Alcohol Use: No - Social History ADL: Family Assistance History of Recent Travel: No Home Medications - Allergies Allergies/Adverse Reactions: Allergies Allergy/AdvReac Type Severity Reaction Status Date / Time No Known Drug Allergies Allergy Verified 09/10/17 14:21 SEASONAL ALLERGIES Allergy Intermediate Uncoded 09/10/17 14:21 - Home Medications Home Medications: Ambulatory Orders Furosemide [Lasix -] 80 mg PO DAILY 03/03/15 Apixaban [Eliquis] 2.5 mg PO BID 30 Days 06/22/15 Cinacalcet HCl [Sensipar -] 30 mg PO DAILY tab 12/12/16 Simethicone [Mylicon -] 80 mg PO Q6HPO PRN #0 tab.chew 12/12/16 Amlodipine Besylate [Norvasc -] 2.5 mg PO DAILY 08/13/17 Sodium Bicarbonate - 650 mg PO DAILY 08/13/17 Hydrocortisone 2.5% Topical Cr [Anusol-Hc -] 1 applic RC DAILY #1 tube 09/07/17 Polyethylene Glycol 3350 [Miralax 119 gm Btl -] 17 gm PO DAILY 09/26/17 Fluticasone Propionate [Flovent Diskus] 50 mcg IH DAILY 10/03/17 Montelukast Sodium [Singulair] 10 mg PO DAILY 10/03/17 Omeprazole 20 mg PO DAILY 10/03/17 Hydrocortisone 2.5% Topical Cr [Anusol-Hc -] 1 applic RC DAILY tube 10/04/17 Review of Systems - Review of Systems Constitutional: denies: Chills, Fever, Loss of Appetite, Unintentional Wgt. Loss Eyes: reports: No Symptoms HENT: reports: No Symptoms Neck: reports: No Symptoms Cardiovascular: reports: No Symptoms Respiratory: reports: No Symptoms Gastrointestinal: reports: Bloating, Constipation, Indigestion. denies: Nausea , Vomiting Genitourinary: reports: No Symptoms Breasts: reports: Skin Changes, Other (swelling) Musculoskeletal: reports: No Symptoms Neurological: reports: No Symptoms Psychiatric: reports: Depression, Other (sucidal ideation) Physical Examination Vital Signs: Vital Signs Temperature 98.5 F 10/03/17 14:59 Pulse Rate 77 10/03/17 14:59 Respiratory Rate 16 10/03/17 14:59 Blood Pressure 140/74 10/03/17 14:59 O2 Sat by Pulse Oximetry (%) 96 10/03/17 14:59 Constitutional: Yes: No Distress, Anxious Eyes: Yes: Conjunctiva Clear, EOM Intact HENT: Yes: Atraumatic, Normocephalic Neck: Yes: Supple, Trachea Midline Cardiovascular: Yes: Regular Rate and Rhythm Respiratory: Yes: CTA Bilaterally Gastrointestinal: Yes: Normal Bowel Sounds, Soft. No: Ascites ...Rectal Exam: Yes: Deferred Renal/: Yes: Anuria Extremities: Yes: Other (bruit) Edema: No Peripheral Pulses WNL: Yes Neurological: Yes: Alert, Oriented ...Motor Strength: WNL Psychiatric: Yes: Suicidal Ideation Labs: CBC, BMP 10/03/17 16:45 10/03/17 16:45 Problem List - Problems (1) Suicidal ideation Assessment/Plan: await psych eval Code(s): R45.851 - SUICIDAL IDEATIONS (2) Constipation Assessment/Plan: hx of chronic constipation - once adheres to medical recommendations constipation is controlled patient with long hx of poor adherence to med Code(s): K59.00 - CONSTIPATION, UNSPECIFIED Qualifiers: Constipation type: unspecified constipation type Qualified Code(s): K59.00 - Constipation, unspecified (3) ESRD (end stage renal disease) on dialysis Code(s): N18.6 - END STAGE RENAL DISEASE; Z99.2 - DEPENDENCE ON RENAL DIALYSIS (4) Hypertension Code(s): I10 - ESSENTIAL (PRIMARY) HYPERTENSION
[2017-10-03] MEDS: SIMETHICONE 80 MG TAB.CHEW (FP) PO PRN (21:43)
[2017-10-03] MEDS ORDERED: MONTELUKAST NA 10 MG TABLET PO SCH (22:00)
[2017-10-03 22:51] VITALS: BMI 18.8
[2017-10-03] MEDS: POLYETHYLENE GLYCOL 3350 119 GM BTL PO SCH (23:12)
[2017-10-03] MEDS: APIXABAN 2.5 MG TABLET PO SCH (23:12)
[2017-10-04 07:08] VITALS: PULSE 94; TEMP 98.1
--- NOTE | 2017-10-04 09:29 | CON.PSY ---
Psychiatry Consult Chief Complaint: I am n ot going to kill myself, I never have and never will. I dont have any mental issues. - Previous Psychiatric Treatment Outpatient: None Inpatient: None - Previous Substance Abuse Treatment Outpatient: None Inpatient: None - Current Medications Current Medications: Active Medications Amlodipine Besylate (Norvasc -) 2.5 mg PO DAILY [facility] Apixaban (Eliquis -) 2.5 mg PO BID [facility] Last Admin: 10/03/17 23:12 Dose: 2.5 mg Cinacalcet (Sensipar -) 30 mg PO DAILY [facility] Fluticasone Propionate (Flonase -) 1 spray NS DAILY [facility] Furosemide (Lasix -) 80 mg PO DAILY [facility] Hydrocortisone (Anusol 2.5% Hc Cream -) 1 applic RC DAILY [facility] Montelukast Sodium (Singulair -) 10 mg PO HS [facility] Last Admin: 10/03/17 21:43 Dose: 10 mg Pantoprazole Sodium (Protonix -) 20 mg PO DAILY [facility] Polyethylene Glycol (Miralax (For Daily Use) -) 17 gm PO BID [facility] Last Admin: 10/03/17 23:12 Dose: Not Given Simethicone (Mylicon -) 80 mg PO Q6H PRN PRN Reason: GAS Last Admin: 10/03/17 21:43 Dose: 80 mg Sodium Bicarbonate (Sodium Bicarbonate -) 650 mg PO DAILY [facility] - Allergies Allergies: Allergies Allergy/AdvReac Type Severity Reaction Status Date / Time No Known Drug Allergies Allergy Verified 09/10/17 14:21 SEASONAL ALLERGIES Allergy Intermediate Uncoded 09/10/17 14:21 - Current Living Status Usual Living Arrangement: With Child - Current Mental Status Evaluation Appearance: Well Groomed Attitude: Cooperative - Affect Affect: Full Range Appropriateness: Appropriate to Content - Mood Mood: Euthymic - Speech/Language Expressive: Coherent - Psychomotor Activity Psychomotor Activity: Normal - Thought Process Thought Process: Intact - Thought Content Hallucinations: Absent Delusions: Absent - Self Perception Self Perception: No Impairment - Cognition Attention: Alert Orientation: Time Memory, Immediate Recall: Intact Memory, Short Term: 2/3 Memory, Remote with Promptin/3 - Concentration Serial Sevens Intact: No Simple Calculations Intact: No - Abstraction Proverb Interpretation: Intact Judgement: Intact - Insight Insight: Intact - Impulse Control Impulse Control: Good Control - Suicidal Ideation Suicidal Ideation: No - Homicidal Ideation Homicidal Ideation: No Assessment/Plan 1) Patient is not suicidal. 2) No need for any psych meds. 3) Discharge Home.
[2017-10-04] MEDS ORDERED: PT OWN MED DRAWER 7, Y5N ONE (09:52)
[2017-10-04 09:57] VITALS: BP 140/67
[2017-10-04] MEDS: SIMETHICONE 80 MG TAB.CHEW (FP) PO PRN (09:58)
[2017-10-04] MEDS: APIXABAN 2.5 MG TABLET PO SCH (09:59)
[2017-10-04] MEDS ORDERED: FLUTICASONE PROP 0.05% 16 GM NASAL SPRAY NS SCH (10:00)
[2017-10-04] MEDS ORDERED: amLODIPine BESYLATE 2.5 MG TABLET (FP) PO SCH (10:00)
[2017-10-04] MEDS ORDERED: CINACALCET HCL 30 MG TAB (FP) PO SCH (10:00)
[2017-10-04] MEDS ORDERED: PANTOPRAZOLE 20 MG TABLET (FP) PO SCH (10:00)
[2017-10-04] MEDS ORDERED: HYDROCORTISONE 2.5% TOPICAL CREAM 30 GM TUBE RC SCH (10:00)
[2017-10-04] MEDS: POLYETHYLENE GLYCOL 3350 119 GM BTL PO SCH (10:00)
[2017-10-04] MEDS ORDERED: SODIUM BICARBONATE 650 MG TABLET PO SCH (10:00)
[2017-10-04] MEDS ORDERED: FUROSEMIDE 40 MG TABLET (FP) PO SCH (10:00)
--- NOTE | 2017-10-04 11:47 | DS ---
Physical Examination Vital Signs: Vital Signs Temperature 98.1 F 10/04/17 06:00 Pulse Rate 94 H 10/04/17 09:57 Respiratory Rate 18 10/04/17 09:57 Blood Pressure 140/67 10/04/17 09:57 O2 Sat by Pulse Oximetry (%) 96 10/03/17 21:57 Findings/Remarks: The patient is a 87 year old female with significant past medical history of HTN , ESRD (on dialysis T//SAT), chronic constipation, ( followed by GI ) presents to the emergency department complaining of constipation. The patient states she was at dialysis prior to coming to the ED. The patient reports she was stopped taking MiraLAX 2 days ago secondary to the manifestation of diarrhea. The patient states her last bowel movement was 2 days ago. The patient state she is constipated but is able to pass gas and states a lot of gas in the belly. The patient states she had an appointment with Dr. Ma 6 days ago to get a stitch out. The patient states she has swelling to her right breast. Family report patient with suicidal ideation / no overt action / family report "plans to throw herself down the stairs ", wants to "ended all " --- Psychiatry called --will evaluate patient in am. Plans to admit for observation / safety. Patient was evaluated this am --denies any attempt at hurting herself. Psych evaluation done and reviewed -- patient not at risk for self injury She is being discharged home with same medications and regular followup Constitutional: Yes: Well Nourished, No Distress, Calm Eyes: Yes: Conjunctiva Clear, EOM Intact HENT: Yes: Atraumatic, Normocephalic Neck: Yes: Supple, Trachea Midline Cardiovascular: Yes: Regular Rate and Rhythm Respiratory: Yes: Regular Gastrointestinal: Yes: Normal Bowel Sounds ...Rectal Exam: Yes: Deferred Renal/: Yes: Anuria Breast(s): Yes: Other Musculoskeletal: Yes: WNL Extremities: Yes: Other (bruit) Edema: No Peripheral Pulses WNL: Yes Psychiatric: Yes: Alert, Oriented Labs: CBC, BMP 10/03/17 16:45 10/03/17 16:45 Discharge Summary Reason For Visit: SUICIDAL IDEATION/CONSTIPATION Current Active Problems Suicidal ideation (Acute) Condition: Good - Instructions Disposition: HOME - Home Medications Comprehensive Discharge Medication List: Ambulatory Orders Furosemide [Lasix -] 80 mg PO DAILY 03/03/15 Apixaban [Eliquis] 2.5 mg PO BID 30 Days 06/22/15 Cinacalcet HCl [Sensipar -] 30 mg PO DAILY tab 12/12/16 Simethicone [Mylicon -] 80 mg PO Q6HPO PRN #0 tab.chew 12/12/16 Amlodipine Besylate [Norvasc -] 2.5 mg PO DAILY 08/13/17 Sodium Bicarbonate - 650 mg PO DAILY 08/13/17 Hydrocortisone 2.5% Topical Cr [Anusol-Hc -] 1 applic RC DAILY #1 tube 09/07/17 Polyethylene Glycol 3350 [Miralax 119 gm Btl -] 17 gm PO DAILY 09/26/17 Fluticasone Propionate [Flovent Diskus] 50 mcg IH DAILY 10/03/17 Montelukast Sodium [Singulair] 10 mg PO DAILY 10/03/17 Omeprazole 20 mg PO DAILY 10/03/17 Hydrocortisone 2.5% Topical Cr [Anusol-Hc -] 1 applic RC DAILY tube 10/04/17
== END 2017-10-04 13:46 | disposition home or self-care (01) ==
LOC: JER 14:52 → JERBED 19:34 → J5S 20:22
PROVIDERS: ADMIT Family Medicine; ATTEND Family Medicine
DX: R45.851 Suicidal ideations (principal); K59.00 Constipation, unspecified; I12.0 Hypertensive chronic kidney disease with stage 5 chronic kidney disease or end stage renal disease; N18.6 End stage renal disease; Z99.2 Dependence on renal dialysis; K21.9 Gastro-esophageal reflux disease without esophagitis; D64.9 Anemia, unspecified; J30.9 Allergic rhinitis, unspecified
CPT/HCPCS: 36415; 74019-TC-FY; 80053; 83690; 85025; 99285-25; G0378